=== PATIENT | female | born 1940 | race Caucasian/White ===

== ENCOUNTER → 2018-11-13 10:30 | Outpatient (CLI) | payer MEDICARE, OTHER, BC, SELFPAY ==
--- NOTE | 2018-11-13 | DI.MG.S_ITS ---
BILATERAL DIGITAL SCREENING MAMMOGRAM 3D/2D WITH CAD: 11/13/2018 CLINICAL: Routine screening. Comparison is made to exams dated: 09/05/2017 mammogram, 10/19/2014 mammogram, and 08/29/2012 mammogram - [facility]. There are scattered fibroglandular elements in both breasts. Current study was also evaluated with a Computer Aided Detection (CAD) system. No significant masses, calcifications, or other findings are seen in either breast. There has been no significant interval change. IMPRESSION: NEGATIVE There is no mammographic evidence of malignancy. A 1 year screening mammogram is recommended. This exam was interpreted at Station ID: [id number]. NOTE: For mammograms, a report in lay terms will be sent to the patient. Approximately 15% of breast malignancies will not be visualized mammographically. In the management of a palpable breast mass, a negative mammogram must not discourage biopsy of a clinically suspicious lesion. Electronically Signed By: Harvey Forde M.D. [email or web address]/[email or web address]:11/13/2018 17:12:35 copy to: Keysha Barger M.D., [facility], ph: [phone], fax: [phone] letter sent: Normal Exam ACR BI-RADS Category 1: Negative [id number]
== END ==
PROVIDERS: PCP Family Medicine; Visit Provider Family Medicine
DX: Z12.31 Encounter for screening mammogram for malignant neoplasm of breast (principal)
CPT/HCPCS: 77063; 77067

== ENCOUNTER → 2018-11-14 07:51 | Outpatient (CLI) | payer MEDICARE, OTHER, BC, SELFPAY ==
[2018-11-14 08:59] LABS: Hematocrit 40.2 % (36-46); Hemoglobin 13.8 g/dL (12.0-16.0); Mean Corpuscular HGB Conc 34.3 % (30-36); Mean Corpuscular Hemoglobin 31.3 PG (26-34); Mean Corpuscular Volume 91.2 fL (80-100); Platelet Count 275 X10^3/uL (150-400); White Blood Cell Count 4.5 X10^3/uL (4.5-11.0)
[2018-11-14 09:20] LABS: Neutrophils Absolute Manual 2700 /uL (3000-5900); Rouleaux 1+; Total Cells Counted 100
[2018-11-14 09:28] LABS: Alanine Aminotransferase 27 IU/L (9-52); Albumin 4.5 g/dL (3.5-5.0); Albumin Globulin Ratio 1.6 (1.0-2.8); Alkaline Phosphatase 56 U/L (38-126); Aspartate Aminotransferase 27 IU/L (14-36); BUN Creatinine Ratio 14.3 (6-22); Bilirubin Total 0.7 mg/dL (0.2-1.3); Blood Urea Nitrogen 10 mg/dL (7-17); Calcium 10.1 mg/dL (8.4-10.2); Carbon Dioxide 28 mmol/L (22-32); Chloride 103 mmol/L (98-107); Cholesterol 200 mg/dL (140-199); Estimated Glomerular Filt Rate > 60.0 mL/min (>60); Globulin 2.8 g/dL (1.7-4.1); Glucose 116 mg/dL (80-110); HDL Cholesterol 76 mg/dL (40-60); HEMOLYSIS < 15 (0-50); LDL Cholesterol Calculated 99 mg/dL (<100); Potassium 4.4 mmol/L (3.4-5.1); Sodium 142 mmol/L (137-145); Total Protein 7.3 g/dL (6.3-8.2); Triglycerides 127 mg/dL (35-150)
[2018-11-14 09:56] LABS: Thyroid Stimulating Hormone 2.09 uIU/mL (0.47-4.68)
== END ==
PROVIDERS: PCP Family Medicine; Visit Provider Family Medicine
DX: I10 Essential (primary) hypertension (principal)
CPT/HCPCS: 36415; 80053; 80061; 84443; 85025

== ENCOUNTER → 2019-06-18 09:56 | Outpatient (CLI) | payer MEDICARE, OTHER, BC, SELFPAY ==
--- NOTE | 2019-06-18 09:59 | DI.RAD.S_ITS ---
PROCEDURE: XR KNEE LT 3V INDICATIONS: left knee contusion TECHNIQUE: 3 views of the knee were acquired. COMPARISON: None. FINDINGS: Bones: No fractures or dislocations. No suspicious bony lesions. Prominent spurring at the superior pole of the patella. Mild degenerative joint disease Soft tissues: No joint effusion. No suspicious soft tissue calcifications. IMPRESSION: Mild degenerative joint disease. If the patient's pain or other symptoms persist, consider further evaluation with MRI Dictated by: Best Rose M.D. on 06/18/2019 at 13:44 Approved by: Best Rose M.D. on 06/18/2019 at 13:45
--- NOTE | 2019-06-18 09:59 | DI.RAD.S_ITS ---
PROCEDURE: XR CHEST 2V INDICATIONS: chest pain TECHNIQUE: 2 views of the chest were acquired. COMPARISON: None. FINDINGS: Surgical changes and devices: None. Lungs and pleura: Lungs are clear. No pleural effusions or pneumothorax. Mediastinum: Mediastinal contours are normal. Heart size is normal. Bones and chest wall: No suspicious bony abnormalities. Soft tissues appear unremarkable. IMPRESSION: No acute disease Dictated by: Best Rose M.D. on 06/18/2019 at 13:44 Approved by: Best Rose M.D. on 06/18/2019 at 13:44
[2019-06-18 11:28] LABS: Hemoglobin A1C% w Est Avg Glu 5.7 % (4.0-6.0)
[2019-06-18 12:33] LABS: TSH w/ Reflex to FT4 1.46 uIU/mL (0.47-4.68)
[2019-06-18 12:40] LABS: Folate > 20.0 ng/mL (2.76-20.0); Vitamin B12 Reflex MMA if <400 475 pg/mL (239-931)
== END ==
PROVIDERS: PCP Family Medicine; Visit Provider Family Medicine
DX: S80.02XA Contusion of left knee, initial encounter (principal); M17.12 Unilateral primary osteoarthritis, left knee; R07.9 Chest pain, unspecified; R25.1 Tremor, unspecified; R20.0 Anesthesia of skin; R73.01 Impaired fasting glucose
CPT/HCPCS: 36415; 71046; 73562; 82607; 82746; 83036; 84443

== ENCOUNTER 2019-12-15 18:25 | Inpatient (IN) | payer MEDICARE, OTHER, BC, SELFPAY ==
[2019-12-15] VITALS (11 sets, daily range): BP systolic 157–187; BP diastolic 69–95; PULSE 59–68; RESP 14–18; TEMP 36.4–36.5; O2SAT 94–98; BMI 31.8
--- NOTE | 2019-12-15 18:37 | DI.RAD.S_ITS ---
PROCEDURE: XR ANKLE RT 2V INDICATIONS: fall TECHNIQUE: 2 views of the ankle were acquired. COMPARISON: None. FINDINGS: Bones: Laterally displaced and medially angulated fracture of the distal fibula to level of the syndesmosis with comminution. There is a minimally comminuted fracture dislocation involving the distal tibia with avulsion and displacement of the medial malleolus, with a lateral and posterior dislocation at the tibiotalar articulation..No suspicious bony lesions. Moderate plantar and dorsal calcaneal spurring. Mild degenerative midfoot changes. Soft tissues: No tibiotalar joint effusion. Achilles tendon appears normal. IMPRESSION: 1. Posterior lateral fracture dislocation at the tibiotalar joint. 2. Laterally displaced comminuted distal fibular fracture at the syndesmosis. 3. Anterior posterior malleolar fractures are not identified on the given 2 views. Dictated by: Ying Nicholas M.D. on 12/15/2019 at 20:25 Approved by: Ying Nicholas M.D. on 12/15/2019 at 20:29
[2019-12-15] MEDS: MORPHINE 4 MG/ML INJ IV ×2 (18:51→22:04)
[2019-12-15] MEDS: ONDANSETRON 4 MG/2 ML INJ IV (18:51)
--- NOTE | 2019-12-15 20:27 | ED.LOWEXIN ---
HPI - Extremity Injury (Lower) General Chief Complaint: Extremity Injury, Lower Stated Complaint: RIGHT ANKLE INJURY Time Seen by Provider: 12/15/19 18:33 Source: patient and EMS Mode of arrival: EMS Limitations: no limitations History of Present Illness HPI Narrative: The patient stepped out her mailbox, about 6:00 p.m.. She slipped on her driveway on snow/ice. Her right ankle rolled under her, she is significantly injured her right ankle. The right ankle is deformed, she has no head, neck, torso or upper extremity injuries. Her left leg is not injured. She is on medications for hypertension. She is not on blood thinners. She has deformity to the right ankle. She has no numbness or tingling to the right foot. Her last meal was before 6:00 p.m.. She has no history of sleep apnea, airway disease, or cardiac disease. Her tetanus is up-to-date. Related Data Home Medications Medication Instructions Recorded Confirmed ASPIRIN (#ASPIR 81) 81 mg PO Q DAY #0 06/11/12 12/16/19 melatonin 5 mg capsule 15 mg PO BEDTIME cap 04/30/19 12/16/19 omeprazole magnesium 20 mg 20 mg PO DAILY 04/30/19 12/16/19 tablet,delayed release Previous Rx's Medication Instructions Recorded furosemide 20 mg tablet 20 mg PO DAILY #30 tab 12/10/18 lisinopril 20 mg tablet 20 mg PO DAILY #30 tab 09/09/19 propranolol 80 mg capsule,extended 80 mg PO DAILY #30 cap 09/09/19 release 24 hr Allergies Allergy/AdvReac Type Severity Reaction Status Date / Time No Known Drug Allergies Allergy Verified 11/06/19 08:30 Review of Systems Review of Systems ROS Unobtainable: All systems reviewed & are unremarkable except as noted in HPI and below Constitutional Comments: No recent illness or other injuries. Eyes Comments: No visual changes. ENT Comments: No head or neck complaints. Cardiovascular Cardiovascular: Denies chest pain, Denies edema, Denies irregular heart rhythm, Denies dyspnea and Denies dyspnea on exertion Respiratory Respiratory: Denies cough, Denies dyspnea, Denies dyspnea on exertion and Denies wheezing Gastrointestinal Gastrointestinal: Denies abdominal pain and Denies nausea Musculoskeletal Musculoskeletal: Denies back pain Allergic/Immunologic Allergic/Immunologic: Denies wheezing Patient History Medical History Hypertension (Acute) Obesity (Acute) Surgical History Status post appendectomy Family History Brother Heart disease Father Heart disease Social History marital status: number of children: 2 household members: spouse lives independently: Yes caregiver/support person: No housing: house Smoking Status: Never smoker second hand exposure: No alcohol intake: current substance use type: does not use Smoking Status: Never smoker Substance Use Type: does not use Exam Initial Vital Signs Initial Vital Signs: Vital Signs Temperature 97.7 F 12/15/19 18:31 Pulse Rate 66 12/15/19 18:31 Respiratory Rate 16 12/15/19 18:31 Blood Pressure 157/72 H 12/15/19 18:31 Pulse Oximetry 96 12/15/19 18:31 Const General: cooperative and well developed Nutritional Appearance: well nourished [facility] Head: normocephalic and atraumatic Eyes General: appearance normal, both eyes and all related structures Eyelids: eyelids normal Conjunctivae: conjunctivae normal Sclera: sclerae normal Pupils: PERRL EOM: EOM intact bilaterally Neck Neck: trachea midline, supple, No lymphadenopathy and No JVD Resp Effort & Inspection: normal respiratory effort and able to speak in complete sentences Auscultation: clear to auscultation bilaterally, no rales, no rhonchi and no wheezes Cardio Rate: regular rate Rhythm: regular rhythm Heart Sounds: no click, no gallops, no murmurs and no rubs Pulses: normal peripheral pulses GI Inspection: non-distended Palpation: soft, no hepatosplenomegaly, No guarding, No pulsatile mass and No tender Auscultation: normal bowel sounds Back/Spine/Pelvis Thoracic/Lumbar Spine: thoracic and lumbar spine normal to inspection Skin General: no rashes or lesions noted Other: Abrasion, right medial ankle, at the fracture site. Neuro General: alert, oriented x3 and gait normal Speech: speech normal Motor: muscle tone normal throughout Sensory Exam: no sensory deficits noted Extrem Other: Right ankle for deformity consistent with fracture/dislocation with lateral displacement. Abrasion of the medial fracture line with serous drainage, consistent with puncture wound. The right foot is neurovascular intact. Pulses are normal. Light touch sensation is normal. Procedures Orthopedic Fracture Reduction Fracture #1: Time Out Performed: Yes Side: right Fracture Reduction Location: tibia Analgesia: procedural sedation Technique: direct manipulation Post Reduction X-rays Demonstrate: anatomical reduction Post-reduction neuro exam: intact Post-reduction vascular exam: intact Splint Applied: Yes Patient Tolerated Procedure: Well Orthopedic Splinting/Casting Injury #1: Side: right Lower Extremity Injury Location: ankle Lower Extremity Immobilizer: posterior splint and stirrup splint Post splinting neuro exam: intact Post splinting vascular exam: intact Placed by: Provider Procedural Sedation Patient Age: Patient is 5yrs or older Time out performed: Yes Indication: fracture/dislocation reduction ASA Class: II Mallampati Airway Classification: Class I Time of Last PO Intake: 05:00 Preparation: carpet measurer applied, pulse oximeter, capnometry used, supplemental O2 applied, suction/airway equipment at bedside and IV secured IV Etomidate dose (mg): 8 ED Sedation Level: Moderate (Concious) Patient Tolerated Procedure: Well Course Course Course Narrative: The patient has an open, dislocated right ankle fracture. The fracture was reduced, splinted. The foot is neurovascularly intact. The case was discussed with Ortho, Dr. Izquierdo. The patient will be admitted, he will see her in the morning. The case was then discussed, Dr. Lizarraga. Dr. lizarraga has agreed to accept the patient for admission. Orders Ordered: ED Orders 12/15/19 22:18 XR ankle RT 2V Stat 12/15/19 23:11 EKG-12 Lead Stat 12/15/19 23:35 Complete Blood Count AUTO DIFF Stat Comprehensive Metabolic Panel Stat Prothrombin Time INR Stat Sodium Chloride (Normal Saline 0.9%) 1,000 mls @ 125 mls/hr IV CONT ANTHONY Last Admin: 12/16/19 00:15 Dose: 125 mls/hr Documented by: WALLY Cefazolin Sodium 2 gm/ Sodium (Chloride) 100 mls @ 200 mls/hr IV Q8H ANTHONY Stop: 12/16/19 07:31 Last Admin: 12/16/19 00:29 Dose: Not Given Documented by: WALLY Morphine Sulfate (Morphine) 2 mg IV Q4HR PRN PRN Reason: Pain, Moderate (4-6) Discontinued Medications Bacitracin (Bacitracin) 1 applic TOP NOW ONE Stop: 12/15/19 22:04 Last Admin: 12/15/19 22:13 Dose: 1 applic Documented by: OSVALDO Cefazolin Sodium (Ancef Vial) 2 gm IV NOW ONE Stop: 12/15/19 22:48 Last Admin: 12/15/19 23:12 Dose: Not Given Documented by: OSVALDO Etomidate (Amidate) 12 mg IV NOW ONE Stop: 12/15/19 20:31 Last Admin: 12/15/19 22:12 Dose: 8 mg Documented by: OSVALDO Sodium Chloride (Normal Saline 0.9%) 1,000 mls @ 1,000 mls/hr IV BOLUS ONE Stop: 12/15/19 21:28 Last Admin: 12/15/19 22:04 Dose: 1,000 mls/hr Documented by: OSVALDO Cefazolin Sodium/Dextrose (Ancef) 2 gm in 100 mls @ 200 mls/hr IV NOW ONE Stop: 12/15/19 23:40 Last Infusion: 12/15/19 23:55 Dose: 0 mls/hr Documented by: Admin: 12/15/19 23:20 Dose: 200 mls/hr Documented by: OSVALDO Lisinopril (Zestril) 20 mg PO NOW ONE Stop: 12/16/19 01:05 Last Admin: 12/16/19 01:36 Dose: 20 mg Documented by: WALLY Metoprolol Tartrate (Lopressor) 25 mg PO NOW ONE Stop: 12/16/19 01:23 Last Admin: 12/16/19 01:35 Dose: 25 mg Documented by: WALLY Morphine Sulfate (Morphine) 4 mg IV NOW ONE Stop: 12/15/19 18:43 Last Admin: 12/15/19 18:51 Dose: 4 mg Documented by: DANA Morphine Sulfate (Morphine) 4 mg IV NOW ONE Stop: 12/15/19 21:57 Last Admin: 12/15/19 22:04 Dose: 4 mg Documented by: OSVALDO Ondansetron HCl (Zofran) 4 mg IV NOW ONE Stop: 12/15/19 18:43 Last Admin: 12/15/19 18:51 Dose: 4 mg Documented by: DANA Propranolol HCl (Inderal La) 80 mg PO NOW ONE Stop: 12/16/19 01:05 Last Admin: 12/16/19 01:37 Dose: Not Given Documented by: WALLY Vital Signs Vital signs: Vital Signs - 8 hr 12/15/19 22:10 12/15/19 22:15 12/15/19 22:20 Pulse Rate 67 68 60 Respiratory Rate 16 14 17 Blood Pressure [Left Arm] 178/95 H 170/71 H 174/69 H Pulse Oximetry 98 94 97 12/15/19 22:25 12/15/19 22:30 12/15/19 22:34 Pulse Rate 60 61 62 Respiratory Rate 17 16 15 Blood Pressure [Left Arm] 176/84 H 174/82 H 182/88 H Pulse Oximetry 95 97 97 12/15/19 22:40 12/15/19 22:46 Pulse Rate 59 L 67 Respiratory Rate 17 16 Blood Pressure [Left Arm] 187/73 H 185/74 H Pulse Oximetry 96 97 MDM - Extremity Injury (Lower) Lab Data Result diagrams: 12/15/19 23:35 12/15/19 23:35 Labs: Point of Care Testing Test Results Negative Imaging Data Right ankle: Radiologist's Impression: Laterally dislocated bimalleolar fracture. Right ankle post reduction x-ray.: My Impression: The ankle has been successfully reduced. Discharge Plan Departure Patient Disposition: Admitted As Inpatient Clinical Impression: Open fracture of right ankle Qualifiers: Encounter type: initial encounter Open fracture type: open type I or II Qualified Code(s): S82.891B - Other fracture of right lower leg, initial encounter for open fracture type I or II Dislocation of ankle, right, open Qualifiers: Encounter type: initial encounter Qualified Code(s): S93.04XA - Dislocation of right ankle joint, initial encounter Discharge Date/Time: 12/15/19 23:40 Admit Date/Time: 12/15/19 23:15 Admit Provider: Crispin Lizarraga
[2019-12-15] MEDS: SODIUM CHLORIDE 0.9% 1,000 ML 1000 ML IV (22:04)
[2019-12-15] MEDS: ETOMIDATE 2 MG/ML 10 ML VIAL 12 MG IV (22:12)
[2019-12-15] MEDS: BACITRACIN OINT 0.9 GM PCKT 1 APPLIC TOP (22:13)
--- NOTE | 2019-12-15 22:18 | DI.RAD.S_ITS ---
PROCEDURE: XR ANKLE RT 2V INDICATIONS: post reduction TECHNIQUE: 2 views of the ankle were acquired. COMPARISON: [facility], , XR ANKLE RT 2V, 12/15/2019, 19:04. FINDINGS: Bones: There is improved alignment status post closed reduction of the previously identified trimalleolar fracture-dislocation of the right ankle. Fractures of the medial malleolus, distal fibula, and posterior malleolus are redemonstrated. There is persistent widening of the ankle mortise medially as well as mild widening of the distal tibiofibular syndesmosis. Soft tissues: There is any external splint which limits evaluation of fine bony and soft tissue detail. Periarticular soft tissue swelling is demonstrated. IMPRESSION: 1. Improved alignment status post closed reduction of trimalleolar right ankle fracture-dislocation. Dictated by: Harvey Forde M.D. on 12/16/2019 at 9:04 Approved by: Harvey Forde M.D. on 12/16/2019 at 9:24
--- NOTE | 2019-12-15 22:28 | PC.NURSE ---
Reduction completed by Dr. Shipley. Orthoglass splint placed by Dr. Shipley, this EDRN, and Blaise MABRY.
--- NOTE | 2019-12-15 23:11 | PC.NURSE ---
UNable to urinate, states she will try again later.
[2019-12-15] MEDS: CEFAZOLIN 2 GM/100 ML FROZ.PIGGY IV (23:20)
[2019-12-15 23:52] LABS: Add Manual Diff / Slide Review NO; Basophils Absolute Auto 0 /uL (0-100); Basophils Percent Auto 0.3 % (0-2); Eosinophils Absolute Auto 300 /uL (0-450); Eosinophils Percent Auto 2.6 % (2-4); Hematocrit 36.6 % (36-46); Hemoglobin 12.4 g/dL (12.0-16.0); Lymphocytes Absolute Auto 1800 /uL (1100-4500); Lymphocytes Percent Auto 18.5 % (25-40); Mean Corpuscular HGB Conc 33.9 % (30-36); Mean Corpuscular Hemoglobin 31.2 PG (26-34); Monocytes Absolute Auto 600 /uL (0-900); Monocytes Percent Auto 6.3 % (3-14); Neutrophils Absolute Auto 7000 /uL (1500-7000); Neutrophils Percent Auto 72.3 % (50-75); Platelet Count 241 X10^3/uL (150-400); Red Blood Cell Count 3.98 X10^6/uL (4.0-5.2); Red Cell Distribution Width 13.5 % (11.6-14.8); White Blood Cell Count 9.7 X10^3/uL (4.5-11.0)
[2019-12-15 23:59] LABS: Prothrombin Time 11.9 SECONDS (10.1-12.7)
[2019-12-16] VITALS (18 sets, daily range): BP systolic 125–161; BP diastolic 56–86; PULSE 63–71; RESP 10–20; TEMP 35.8–37.2; O2SAT 92–98; BMI 33.0
[2019-12-16 00:03] LABS: Alanine Aminotransferase 13 IU/L (<35); Albumin 3.8 g/dL (3.5-5.0); Albumin Globulin Ratio 1.4 (1.0-2.8); Alkaline Phosphatase 59 U/L (38-126); Aspartate Aminotransferase 19 IU/L (14-36); BUN Creatinine Ratio 17.5 (6-22); Bilirubin Total 0.4 mg/dL (0.2-1.3); Blood Urea Nitrogen 14 mg/dL (7-17); Calcium 8.8 mg/dL (8.4-10.2); Carbon Dioxide 26 mmol/L (22-32); Chloride 104 mmol/L (98-107); Estimated Glomerular Filt Rate > 60.0 mL/min (>60); Globulin 2.7 g/dL (1.7-4.1); Glucose 129 mg/dL (80-110); HEMOLYSIS < 15 (0-50); Potassium 3.8 mmol/L (3.4-5.1); Sodium 138 mmol/L (137-145); Total Protein 6.5 g/dL (6.3-8.2)
[2019-12-16] MEDS: SODIUM CHLORIDE 0.9% 1,000 ML 125 ML IV ×2 (00:15→08:18)
[2019-12-16] MEDS: METOPROLOL IR 25 MG TABLET PO (01:35)
[2019-12-16] MEDS: LISINOPRIL 20 MG TABLET PO (01:36)
[2019-12-16] MEDS: MORPHINE 2 MG/ML INJ IV ×2 (05:12→09:09)
--- NOTE | 2019-12-16 06:30 | PC.NURSE ---
Pt admitted to unit at 2350 as AxOx3. BP on admit 179/87, she had not taken her nightly BP meds. Lisinopril given and Metoprolol. About an hour after arriving she also vomitted 100cc; probably from the morphine she received in ER. Pain rated about 5 out of 10 when first admitted. Increased to 8 out of 10 this morning, relieved with 2mg morphine. Right leg in splint. Good pulses, CMS+. Kept NPO overnight. NS@125mL/hr, no more nausea. EKG NSR taken this morning.
--- NOTE | 2019-12-16 08:04 | P.HP_ITS ---
History of Present Illness History of Present Illness Date Patient Seen: 12/16/19 Time Patient Seen: 08:30 Chief complaint: RIGHT ANKLE INJURY Narrative: Pt is a 79 year old woman with hypertension and GERD who presented after falling on the ice when going to get her mail yesterday evening. She reports that her leg went one way and her foot the other way. She had instant pain in her leg. She denies hitting her head, or any other injury to her body. She had no loss of consciousness. She denies any chest pain or any other symptoms prior to the fall, and states that she simply slipped on the ice. In the emergency department, the patient was noted to have an open fracture at the ankle. The patient reports that she has otherwise been feeling well. She is a generally healthy woman who takes antihypertensives and a PPI. Patient History Medical History Hypertension (Acute) Obesity (Acute) Surgical History Status post appendectomy Family & Social History Family History Brother Heart disease Father Heart disease Social History: household members spouse lives independently Yes caregiver/support person No Safety & Behavioral: Feels Safe in Current Yes Environment Been Physically Hurt or No Threatened By a Person Suicidal Ideation Description None Suicide Plan Description No Plan Tobacco & Substance use: Smoking Status Never smoker alcohol intake current alcohol intake frequency a few times a month Substance Use Type does not use Meds Home Medications and Allergies Home Medications Medication Instructions Recorded Confirmed Type ASPIRIN (#ASPIR 81) 81 mg PO Q DAY #0 06/11/12 12/16/19 History furosemide 20 mg tablet 20 mg PO DAILY #30 tab 12/10/18 12/16/19 Rx melatonin 5 mg capsule 15 mg PO BEDTIME cap 04/30/19 12/16/19 History omeprazole magnesium 20 mg 20 mg PO DAILY 04/30/19 12/16/19 History tablet,delayed release lisinopril 20 mg tablet 20 mg PO DAILY #30 tab 09/09/19 12/16/19 Rx propranolol 80 mg capsule,extended 80 mg PO DAILY #30 cap 09/09/19 12/16/19 Rx release 24 hr Allergies Allergy/AdvReac Type Severity Reaction Status Date / Time No Known Drug Allergies Allergy Verified 11/06/19 08:30 Review of Systems Constitutional Constitutional: Denies fever(s), Denies frequent falls and Denies lack of energy Cardiovascular Cardiovascular: Denies chest pain, Denies leg swelling, Denies rapid, pounding, or irregular heartbeat and Denies shortness of breath Respiratory Respiratory: Reports cough, Denies dyspnea and Denies wheezing Gastrointestinal Gastrointestinal: Denies abdominal pain, Denies constipation, Reports heartburn, Denies nausea and Denies vomiting Neurologic Neurologic: Denies frequent falls Endocrine Endocrine: Denies palpitations Allergic/Immunologic Allergic/Immunologic: Denies wheezing Exam Vital Signs (past 8 hours): - 12/16/19 05:31 Temperature 97.5 F L Pulse Rate 64 Respiratory Rate 18 Blood Pressure 144/76 H Pulse Oximetry 96 Oxygen Delivery Method Room Air Oxygen Flow Rate 0 Narrative Exam Narrative: GEN - alert, cooperative and no distress HEENT - normocephalic and atraumatic, sclera white, moist mucus membranes NECK - FROM, no adenopathy HEART - RRR, S1, S2 normal, no S3 or S4, no murmurs LUNGS - symmetric chest rise, no accessory muscles, clear to auscultation b ilaterally ABD - nondistended, normal bowel sounds, soft, nontender and no hepatomegaly, splenomegaly or masses EXT - trace edema left LE, right LE wrapped and splinted - cool to touch but pedal pulses intact SKIN - no rashes or suspicious lesions NEURO - no gross deficits Objective Imaging xray: Radiologist's impression: PROCEDURE: XR ANKLE RT 2V INDICATIONS: fall TECHNIQUE: 2 views of the ankle were acquired. COMPARISON: None. FINDINGS: Bones: Laterally displaced and medially angulated fracture of the distal fibula to level of the syndesmosis with comminution. There is a minimally comminuted fracture dislocation involving the distal tibia with avulsion and displacement of the medial malleolus, with a lateral and posterior dislocation at the tibiotalar articulation..No suspicious bony lesions. Moderate plantar and dorsal calcaneal spurring. Mild degenerative midfoot changes. Soft tissues: No tibiotalar joint effusion. Achilles tendon appears normal. IMPRESSION: 1. Posterior lateral fracture dislocation at the tibiotalar joint. 2. Laterally displaced comminuted distal fibular fracture at the syndesmosis. 3. Anterior posterior malleolar fractures are not identified on the given 2 views. Dictated by: Ying Nicholas M.D. on 12/15/2019 at 20:25 Labs Result Diagrams: 12/15/19 23:35 12/15/19 23:35 Labs: Laboratory Results - last 24 hr 12/15/19 12/15/19 12/15/19 23:35 23:35 23:35 WBC 9.7 RBC 3.98 L Hgb 12.4 Hct 36.6 MCV 92.0 MCH 31.2 MCHC 33.9 RDW 13.5 Plt Count 241 Neut % (Auto) 72.3 Lymph % (Auto) 18.5 L [place] % (Auto) 6.3 Eos % (Auto) 2.6 Baso % (Auto) 0.3 Neut # (Auto) 7000 Lymph # (Auto) 1800 [place] # (Auto) 600 Eos # (Auto) 300 Baso # (Auto) 0 PT 11.9 INR 1.0 Sodium 138 Potassium 3.8 Chloride 104 Carbon Dioxide 26 BUN 14 Creatinine 0.80 Estimated GFR > 60.0 BUN/Creatinine Ratio 17.5 Glucose 129 H Calcium 8.8 Total Bilirubin 0.4 AST 19 ALT 13 Alkaline Phosphatase 59 Total Protein 6.5 Albumin 3.8 Globulin 2.7 Albumin/Globulin Ratio 1.4 Assessment & Plan Assessment & Plan narrative: Pt is a 79 year old woman with hypertension and GERD who presented after falling on the ice when going to get her mail yesterday evening, found to have an open dislocated right ankle fracture. 1) Ankle fracture: - Management as per ortho. Plan for the OR later today. 2) Hypertension: - Continue home Lisinopril, Propranolol, Furosemide. 3) GERD: - Continue home Omeprazole FEN: NPO pending surgery DVT: SCDs Code: Full Dispo: Pending surgery and PT/OT evaluation postoperatively. Discharge timing largely to be determined by Ortho, as medical issues stable at this point in time.
[2019-12-16] MEDS: CEFAZOLIN VIAL 2 GM in SODIUM CHLORIDE 0.9% 100 ML 200 ML IV (09:09)
--- NOTE | 2019-12-16 09:34 | PC.NURSE ---
Addendum entered by Christi Carter R.N. 12/16/19 14:48: Patien down to surgery at 1400. Addendum entered by Christi Carter R.N. 12/16/19 11:55: Pt stated that she voided in her brief again and was still having bladder tenderness. Patient was bladder scanned again and had 767cc of urine in her bladder. Called and got an order from RN to put a garcias catheter in. This has been placed and pt initally had 1000 cc in bag... She has now put out a total of 1300. Patient states that she is feeling better and she is now visiting with her . Calling who is microelectronics engineer to get an ortho consult so that she can be seen today for her ankle. Original Note: Assess- Patient is a bit anxious, she states that her pain level is a 7/10, given Morphine 2mg IV and seems to be helping patient. She denies nausea and is lying on her back... She was incontinent of a large amount of urine in her brief and was stating that when she is laying flat her bladder feels full. Bladder scanned for 377cc of urine. Will keep an eye on this, if goes above 400cc will talk to ortho and see if we can place a garcias before she has her ankle surgery. Antibiotic infusing at this time and patient given a warm blanket.
[2019-12-16 13:29] LABS: Bacteria Urine None Seen; WBC Urine None Seen (0-5/HPF)
[2019-12-16 13:30] LABS: Appearance Urine UA CLEAR; Bilirubin Urine UA NEGATIVE (NEGATIVE); Color Urine UA YELLOW; Glucose Urine UA NEGATIVE (Negative); Ketones Urine UA NEGATIVE (NEGATIVE); Leukocyte Esterase Urine UA NEGATIVE (NEGATIVE); Nitrite Urine UA NEGATIVE (Negative); Occult Blood Urine UA 1+ (Negative); Protein Urine UA NEGATIVE (Negative); Specific Gravity Urine UA 1.015 (1.000-1.035); Urobilinogen Urine UA 0.2 E.U./dL (0.2)
[2019-12-16 13:40] LABS: Culture Indicated Urine Cult Not Indicated; RBC Urine 5-10/HPF (0-5/HPF)
--- NOTE | 2019-12-16 14:44 | CM.IDA ---
Addendum entered by AGUILA Montez 12/17/19 09:26: Met w/pt and spouse this AM and introduced role again to both at bedside. Pt admits she is nervous about returning home because she needs to get into her house (and is fearful about the snow/ice accumulation) and is not sure how she'll do being non-weight bearing on her right ankle. Encouraged pt and spouse to think about SNF; pt has MCR and is admitted as an inpatient so can use this benefit after 3 nights. This OPHTHALMIC MEDICAL TECHNOLOGIST will follow closely and chk back w/pt and spouse after therapies have assessed and initial recommendation for dispo is made. IRMA Original Note: Initial DCP Assessment Note: Pt is a 79 yo female, resident of [place]. Pt is awaiting surgery today for a fractured ankle, sustained after a fall on the ice at her mailbox. PCP: Keysha Barger Payer: ADAN/Heladio Novak This OPHTHALMIC MEDICAL TECHNOLOGIST met briefly w/pt this AM, she was awaiting surgery and said to this OPHTHALMIC MEDICAL TECHNOLOGIST it couldn't come soon enough and I don't feel very social at this time. Pt awaiting her to arrive to the hospital but also nervous about him driving in the snow. This OPHTHALMIC MEDICAL TECHNOLOGIST will return to assess needs further, pt will be POD#1 from her ankle surgery. AGUILA Montez
--- NOTE | 2019-12-16 14:56 | PC.NURSE ---
Pt arrived to room at 1455.. She is comfortable and dressing to l.hip is cdi with ice in place. VSS and patient denies pain.
[2019-12-16] MEDS: LACTATED RINGERS 1,000 ML 42 ML IV ×2 (14:58→16:50)
--- NOTE | 2019-12-16 15:08 | PM.CN ---
History of Present Illness Consult details Date Patient Seen: 12/16/19 Time Patient Seen: 15:09 Chief complaint: RIGHT ANKLE INJURY Reason for consult: right ankle open trimal fracture Narrative: Patient is a 79-year-old female who was out getting her mail yesterday evening at about 6:00 p.m.. She had a ground level fall and fractured her right ankle. Was also skin break at the level of the fracture with continuous bleeding. Concern for open fracture. She was seen at [facility] where she was given 2 g Ancef on admission and given Ancef q.8 hours. Patient's pain has been well controlled since admission denies any numbness or tingling in the toes. Meds Home Medications and Allergies Home Medications Medication Instructions Recorded Confirmed Type ASPIRIN (#ASPIR 81) 81 mg PO Q DAY #0 06/11/12 12/16/19 History furosemide 20 mg tablet 20 mg PO DAILY #30 tab 12/10/18 12/16/19 Rx melatonin 5 mg capsule 15 mg PO BEDTIME cap 04/30/19 12/16/19 History omeprazole magnesium 20 mg 20 mg PO DAILY 04/30/19 12/16/19 History tablet,delayed release lisinopril 20 mg tablet 20 mg PO DAILY #30 tab 09/09/19 12/16/19 Rx propranolol 80 mg capsule,extended 80 mg PO DAILY #30 cap 09/09/19 12/16/19 Rx release 24 hr Allergies Allergy/AdvReac Type Severity Reaction Status Date / Time No Known Drug Allergies Allergy Verified 11/06/19 08:30 Exam Vital Signs (past 8 hours): - 12/16/19 08:14 12/16/19 08:35 12/16/19 11:20 Temperature 98.5 F 98.7 F Pulse Rate 70 65 65 Respiratory Rate 20 18 Blood Pressure 156/79 H 144/67 H Pulse Oximetry 98 98 97 12/16/19 14:45 12/16/19 14:46 Temperature 98.5 F 98.5 F Pulse Rate 68 68 Respiratory Rate 18 18 Blood Pressure 156/66 H 156/86 H Pulse Oximetry 95 96 Oxygen Delivery Method Room Air Oxygen Flow Rate 0 Narrative Exam Narrative: Splint in place. Able to wiggle toes. Sensation intact to toes. Objective Labs Result Diagrams: 12/15/19 23:35 12/15/19 23:35 Labs: Laboratory Results - last 24 hr 12/15/19 12/15/19 12/15/19 23:35 23:35 23:35 WBC 9.7 RBC 3.98 L Hgb 12.4 Hct 36.6 MCV 92.0 MCH 31.2 MCHC 33.9 RDW 13.5 Plt Count 241 Neut % (Auto) 72.3 Lymph % (Auto) 18.5 L [place] % (Auto) 6.3 Eos % (Auto) 2.6 Baso % (Auto) 0.3 Neut # (Auto) 7000 Lymph # (Auto) 1800 [place] # (Auto) 600 Eos # (Auto) 300 Baso # (Auto) 0 PT 11.9 INR 1.0 Sodium 138 Potassium 3.8 Chloride 104 Carbon Dioxide 26 BUN 14 Creatinine 0.80 Estimated GFR > 60.0 BUN/Creatinine Ratio 17.5 Glucose 129 H Calcium 8.8 Total Bilirubin 0.4 AST 19 ALT 13 Alkaline Phosphatase 59 Total Protein 6.5 Albumin 3.8 Globulin 2.7 Albumin/Globulin Ratio 1.4 Urine Color Urine Appearance Urine pH Ur Specific [place] Urine Protein Urine Glucose (UA) Urine Ketones Urine Occult Blood Urine Nitrate Urine Bilirubin Urine Urobilinogen Ur Leukocyte Esterase Urine RBC Urine WBC Urine Bacteria Ur Culture Indicated? 12/16/19 12:15 WBC RBC Hgb Hct MCV MCH MCHC RDW Plt Count Neut % (Auto) Lymph % (Auto) [place] % (Auto) Eos % (Auto) Baso % (Auto) Neut # (Auto) Lymph # (Auto) [place] # (Auto) Eos # (Auto) Baso # (Auto) PT INR Sodium Potassium Chloride Carbon Dioxide BUN Creatinine Estimated GFR BUN/Creatinine Ratio Glucose Calcium Total Bilirubin AST ALT Alkaline Phosphatase Total Protein Albumin Globulin Albumin/Globulin Ratio Urine Color Yellow Urine Appearance Clear Urine pH 7.0 Ur Specific [place] 1.015 Urine Protein Negative Urine Glucose (UA) Negative Urine Ketones Negative Urine Occult Blood 1+ H Urine Nitrate Negative Urine Bilirubin Negative Urine Urobilinogen 0.2 Ur Leukocyte Esterase Negative Urine RBC 5-10/hpf H Urine WBC None seen Urine Bacteria None seen Ur Culture Indicated? Cult not indicated Assessment & Plan Assessment & Plan narrative: Patient is a 79-year-old female with a right ankle trimalleolar fracture. Concern for open fracture. She'd been given Ancef 2 g q.8 hours since admission. Final before I and D and open reduction internal fixation the OR today. Risks and benefits of surgery were discussed the patient and she wishes to proceed. Time Spent With Patient Time with patient: 15-24 minutes
[2019-12-16] MEDS: fentaNYL 100 MCG/2 ML INJ 50 MCG IV (15:09)
[2019-12-16] MEDS: CEFAZOLIN 2 GM/100 ML FROZ.PIGGY IV (15:10)
--- NOTE | 2019-12-16 15:42 | SUR.OPER ---
Supine on padded OR bed, head on pillow, arms secured on padded arm boards at <90 degrees abduction, legs uncrossed, safety belt at abdomen, tape over blanket over left lower leg. right leg propped on blankets, hip bump under right hip
--- NOTE | 2019-12-16 17:49 | PM.OP.1 ---
Operative Date/Time/Diagnoses Date of procedure: 12/16/19 Time of procedure: 17:49 Pre-op diagnosis: Open right trimalleolar ankle fracture Post-op diagnosis: other (Closed right trimalleolar ankle fracture ) Procedure & Clinicians Procedure: ORIF right ankle Same procedure as scheduled: Yes Indications: Trimalleolar ankle fracture Surgeon: Garrick Izquierdo Anesthesia Type: General Operative Notes Findings: Closed right trimalleolar ankle fracture. Closure Type: primary Specimen(s): none sent Prosthetic devices, grafts, tissues, transplants, or devices: Arthrex 6 hole lateral malleolus plate 50 mm 3.5 mm cortical screw - syndesmotic 50mm long threaded 4.0 mm cannulated screw Estimated Blood Loss (mL): 50 Blood products transfused: none Procedure in detail: Patient was met in the preoperative holding area where the site and side of surgery marked by MD. All last minute questions were answered. Patient was then brought back in the operating room where she was transferred onto the OR table. Patient was induced under general anesthesia. The right lower extremity splint was then removed. The right lower extremity was then prepped and draped in normal sterile fashion. A time-out was performed verifying side and site of surgery as well as the name of the patient. The wound over the medial aspect of the ankle was interrogated and found to be superficial. Preop diagnosis was an open right trimalleolar ankle fracture intraoperative diagnosis is a closed trimalleolar ankle fracture. A 7 cm midline incision over the lateral malleolus was made using 10. Blade followed by dissection scissors and electrocautery down to the level of the fibula. The fracture was identified and the fracture edges were cleaned with a 15 blade. The fracture was then opened and irrigation and curettage was used to clean out the fracture site from clot. The fracture then reduced using a [id number] clamp. A 6 hole lateral malleolus plate was then selected. This was then placed onto the fibula and clamped into place along with the [id number] clamp. Distal locking screws were placed 1st followed by a 3 5 cortical screw in the 3rd to most proximal hole. The proximal cortical screw was then placed followed by a locking screw closest to the fracture site to poor bone quality. The skin edges were then approximated loosely with nylon suture. Our attention was then turned to the medial side. A 5 cm long incision over the medial malleolus was then made the fracture was then cleaned with a curette and a 15 blade and saline. The medial malleolus was then reduced with a [id number] clamp. A nonthreaded wire was then placed up to the medial malleolus into the tibia and x-ray was used to verify that we were not within the joint. A parallel wire was then placed. These were then drilled for 4 0 cancellous screws. A 50 mm screw and a 45 mm screw was then selected respectively. These were then placed. X-rays were then taken and stress views performed I think that the syndesmosis was unstable and this point elected to place a syndesmotic screw. This was placed through the lateral malleolus plate just proximal to the joint line a 3 5 mm cortical screw was placed. Lateral view was obtained and the talus was anteriorly subluxated I initially thought that the six-month most screw might have been over reduced. This was then slightly loosened. This is not completely cure the anterior subluxation. I then explored the posterior tibial tendon and posterior tibial tendon was incarcerated within the fracture of the medial malleolus. This was then freed from the fracture site and this corrected our anterior subluxation of the talus. During this maneuver the anterior medial malleolus screw lost its purchase and the medial malleolus at this area was fragmented I removed the screw and elected to just have [address] for the medial malleolus. Both wounds were thoroughly irrigated 2 O Vicryl used to close subcutaneous layer followed by 3 0 nylons in horizontal mattress fashion a short-leg splint was then placed patient was then brought to the PACU in stable condition. Complications: none Post-operative Condition: stable Disposition: PACU Plan for aftercare: Nonweightbearing right lower extremity. Follow up in 2 weeks.
--- NOTE | 2019-12-16 18:51 | SUR.PHASEI ---
Patient awakens to voice. States, I'm cold. Patient is normothermic. 5 warming blankets placed on patient. Cap refill < 2 seconds. States normal sensations to Right foot. Can palpate right leg popliteal.
--- NOTE | 2019-12-16 19:34 | PC.NURSE ---
Per Dr. Azevedo, pt is to be evaluated by Physical Therapy and Discharge planning prior to discharge. This greeting card writer called Dr. Izquierdo to notify of Dr. Azevedo's orders, Dr. Izquierdo agreeable to pt discharging tomorrow after evaluations are complete.
[2019-12-16] MEDS: SODIUM CHLORIDE 0.9% 1,000 ML 100 ML IV (20:17)
[2019-12-16] MEDS: HYDROCODONE/ACET 5/325 TABLET 2 TAB PO (20:17)
[2019-12-16] MEDS: ONDANSETRON 4 MG/2 ML INJ IV (20:20)
[2019-12-17] VITALS (10 sets, daily range): BP systolic 132–145; BP diastolic 47–75; PULSE 66–88; RESP 15–17; TEMP 36.6–37.4; O2SAT 93–96
[2019-12-17] MEDS: MELATONIN 3 MG TABLET 15 MG PO ×2 (00:08→20:17)
[2019-12-17] MEDS: PANTOPRAZOLE 20 MG TABLET PO (05:22)
[2019-12-17] MEDS: HYDROCODONE/ACET 5/325 TABLET 2 TAB PO ×3 (05:24→14:51)
--- NOTE | 2019-12-17 05:48 | PC.NURSE ---
PT doing well. Pain was tolerable overnight not requesting pain meds. This morning pain went up to a 6-7 out of 10; 2 tabs [place] given. IVF running throughout night. Not drinking quite enough PO fluids yet. Hernandez patent with clear yellow urine. Not OOB overnight. Right ankle in splint. Foot is +3 edema. CMS+. Reports no numbness. Foot is warm, pulses felt. Pt concerned about how she will make it into her house on crutches with her husbands help with this snow. Will pass along to day shift.
[2019-12-17] MEDS: SODIUM CHLORIDE 0.9% 1,000 ML 100 ML IV (06:16)
[2019-12-17] MEDS: PROPRANOLOL ER 80 MG CAP.SA.24H PO (09:27)
[2019-12-17] MEDS: FUROSEMIDE 20 MG TABLET PO (09:27)
[2019-12-17] MEDS: LISINOPRIL 20 MG TABLET PO (09:27)
--- NOTE | 2019-12-17 09:52 | PM.PN.1 ---
Subjective Subjective Date Patient Seen: 12/17/19 Time Patient Seen: 09:52 Interval history: Patient is POD#1 s/p ORIF of right ankle trimalleolar fracture with Dr. Izquierdo. Pain mild to moderate controlled with pain medications. Has not mobilized as of yet. Hernandez catheter in place. Exam Vital Signs (past 8 hours): - 12/17/19 04:46 12/17/19 07:50 12/17/19 08:50 Temperature 98.7 F 98.5 F Pulse Rate 75 88 71 Respiratory Rate 16 16 Blood Pressure 133/75 136/61 Pulse Oximetry 96 94 95 12/17/19 09:27 Temperature Pulse Rate 71 Respiratory Rate Blood Pressure 145/64 H Pulse Oximetry Oxygen Delivery Method Room Air Oxygen Flow Rate 0 Narrative Exam Narrative: 79 year old female resting in bed. Alert and oriented in no acute distress. Cast in place over right ankle is intact and dry. Patient able to flex and extend the toes. Sensation intact. Brisk capillary refill. Objective Labs Result Diagrams: 12/15/19 23:35 12/15/19 23:35 Labs: Laboratory Results - last 24 hr 12/16/19 12:15 Urine Color Yellow Urine Appearance Clear Urine pH 7.0 Ur Specific [place] 1.015 Urine Protein Negative Urine Glucose (UA) Negative Urine Ketones Negative Urine Occult Blood 1+ H Urine Nitrate Negative Urine Bilirubin Negative Urine Urobilinogen 0.2 Ur Leukocyte Esterase Negative Urine RBC 5-10/hpf H Urine WBC None seen Urine Bacteria None seen Ur Culture Indicated? Cult not indicated Assessment & Plan Assessment & Plan narrative: Patient doing well postoperatively. She is to be NWB on the right lower extremity for 6 weeks. Recommend ASA 81mg BID x 6 weeks for DVT prophylaxis. Will likely need SNF vs due to mobility status and is only available powerhouse attendant with his own medical needs. Will need outpatient orthopedic follow up with Dr. Izuqierdo in 2 weeks.
--- NOTE | 2019-12-17 09:55 | PC.NURSE ---
Assess- Patient is awake and states that her pain is getting worse in her r. ankle. She has a heavy cast on that lower extremity, her foot has 3-4+ pitting edema to her foot. Pulses are present and palpable. Cast is not tight as this RN can fit her fingers underneath and extremity is warm. Her is in her room visiting, and she was just given two vicodin and this has been helpful for her comfort.
--- NOTE | 2019-12-17 10:12 | PT.IIE ---
Surgery Performed Operation Date: 12/16/19 15:00 Actual Procedures p ORIF Ankle Fracture - Garrick Izquierdo MD Surgical History (Last Reviewed 12/15/19 @ 23:05 by Branden Shipley MD) Status post appendectomy Medical History (Last Reviewed 12/16/19 @ 15:10 by Garrick Izquierdo MD) Hypertension (Acute) Obesity (Acute) Physical Therapy Inpatient Evaluation/Re-Eval M1 PT/OT-IP Prior Functional Status Start: 12/17/19 11:50 Freq: NEEDED Status: Active Protocol: Document 12/17/19 10:12 AB (Rec: 12/17/19 12:02 AB [id number]) Medical Review Prior Functional Status Medical History Reviewed Yes Communication able to make needs known Mobility and Gait pt stated that she is independent with all mobilities and ambulation without AD Social History Household Members spouse Living Arrangements House Number of Floors (Floors) One Floor Number of Stairs To Enter/Railing? 8 inch high step to enter Home Environment High Toilet,Walk in Shower,Tub /Shower Home Equipment Four Wheel Walker,Hand Held Shower,Grab Bars In Shower Additional Social History Comment pt stated that she has a tub shower but no shower chair and the walk in shower is small ~ 32x32. Has a high bed M2 PT-IP Current Condition Start: 12/17/19 11:50 Freq: NEEDED Status: Active Protocol: Document 12/17/19 10:12 AB (Rec: 12/17/19 12:02 AB [id number]) Physical Therapy Current Condition Current Condition Evaluation Date 12/17/19 Treatment Diagnosis R ankle fx s/p ORIF; difficulty in walking Onset Date 12/15/2019 Precautions Brace R ankle on a soft cast Weight Bearing Status Weight Bearing Status Non-Weight Bearing Allowed Weight Bearing Amount (enter % NWB RLE or #) (%) M3 PT-IP Subjective Start: 12/17/19 11:50 Freq: NEEDED Status: Active Protocol: Document 12/17/19 10:12 AB (Rec: 12/17/19 12:02 AB [id number]) Subjective Physical Therapy Visit Type Type Initial Evaluation Visit Start Time 10:12 Visit Stop Time 11:05 Total Visit Minutes 53 Number of HOMEOWNER ASSOCIATION MANAGER Visits 0 Physical Therapy Visit Comments Patient Comments pt agreeable to do PT Therapy Pain Assessment Pain When Pain Assessed At Rest Pain Present Pain Present Pain Reported Location right ankle Intensity 5 Scale Used Numeric (1 - 10) Pain Management Techniques Modification of Treatment,Re- positioning,Timing of Activity with Medications M4 PT-IP Mobility and Gait Start: 12/17/19 11:50 Freq: NEEDED Status: Active Protocol: Document 12/17/19 10:12 AB (Rec: 12/17/19 12:02 AB [id number]) PT-Bed Mobility Assessment Supine to Sit Supine to Sit Standby Assistance Scooting Scooting to Edge of Bed Standby Assistance PT-Transfer Assessment Sit to and From Stand Sit to and from Stand Maximum Assistance,1 Person Assistance,Use of Upper Extremities Equipment Transfer Assistive Device Gait Belt,Front Wheeled Walker Orthotic/Prosthetic Devices or Brace: Yes Transfers Transfer Destination Chair Transfer Technique Stand Pivot Transfer Ability Level of Assist Maximum Assistance,1 Person Assistance,Use of Upper Extremities Comments Mobility Comments pt completed supine to sit SBA . completed sit to stand max A and max cues to maintain NWB on RLE> pt was able to maintain standing using FWW for support mod A and cues and completed stand pivot transfer using fWW max A and cues. pt unable to hop. educated pt on how to hop and ambulate using FWW completed sit to stand from chair max A and cues and ambulated NWB RLE ~ 3 ft max A and cues and chair follow. pt agreed to sit up on the chair. positioned pt and call light/table placed within reach. informed pt and spouse regarding recommendation of SNF and agreed. also informed pt that PT recommending use of FWW at this time and not crutches due to FWW provided more support compared to crutches and pt is already requiring max A using FWW. Pt agreed. Gait Assessment Gait Gait Assistance Required: Maximum Assistance Distance (Feet) 3 Able to Maintain Weight Bearing Status Yes During Gait Assistive Devices Assistive Device Gait Belt,Front Wheeled Walker Orthotic/Prosthetic Devices or Brace: No Factors Limiting Gait Function Factors Limiting Gait Function Decreased Activity Tolerance, Decreased Strength,Limited Range of Motion,Pain,Poor Balance,Poor Safety Awareness Comments Gait Comments pls refer to mobility section for details PT-Balance Assessment Sitting Balance and Reactions Static Sitting Balance Ability Good Dynamic Sitting Balance Ability Good Standing Balance and Reactions Static Standing Balance Ability Fair Dynamic Standing Balance Ability Poor Device Used FWW M5 PT-IP Objective Assessments Start: 12/17/19 11:50 Freq: NEEDED Status: Active Protocol: Document 12/17/19 10:12 AB (Rec: 12/17/19 12:02 AB [id number]) Orientation Orientation/Cognition Level of Alertness Alert Orientation Name,Age,Place,Situation Language Function Ability No Deficits Noted Safety Awareness Understands Safety Issues Memory Description No Deficits Noted Gross Range of Motion Lower Extremity ROM Assessment Right Impaired Impairments R ankle on soft cast Strength Comments Strength Comments RLE on soft cast and is NWB and MMT not performed on lower leg Coordination Assessment Gross Coordination Gross Coordination WNL Sensation Assessment Sensation Gross Sensation WNL Muscle Tone Muscle Tone WNL Yes M6 PT-IP Treatment Start: 12/17/19 11:50 Freq: NEEDED Status: Active Protocol: Document 12/17/19 10:12 AB (Rec: 12/17/19 12:02 AB [id number]) Physical Therapy Treatment Education Education Provided Precautions,Weight Bearing Status,Safety Other Treatments Other Treatment Performed educated pt andn spouse on equipement needs: w/c, FWW and bedside commode M7 PT-IP Assessment and Plan Start: 12/17/19 11:50 Freq: NEEDED Status: Active Protocol: Document 12/17/19 10:12 AB (Rec: 12/17/19 12:02 AB [id number]) PT Summary Assessment and Plan Potential Rehabilitation Potential Good Status of Condition at Evaluation Evolving Summary Impairments Pain,ROM,Strength,Balance, Coordination,Bed Mobility, Transfers,Gait,Activity Tolerance Assessment Summary pt requiring max A with transfers and has decrease activity tolerance. educated pt and spouse on equipement needs and SNF recommendation at this time. both expressed understanding and agreed. will continue to monitor progress. Goals Bed Mobility Goal Independent Transfer Goal Standby Assistance,Front Wheeled Walker Gait Goal Standby Assistance,Front Wheel Walker Gait Distance 25 Other Goals up/down 1 step FWW min A Days to Meet Goals 10 Frequency of Treatment Frequency Of Treatment Twice a Day Treatment Plan Physical Therapy Treatment Plan Bed Mobility Training,Transfer Training,Gait Training, Therapeutic Exercise,Balance Retraining,Post Op Education, Discharge Planning,Hot or Cold Pack,Neuromuscular Re-ed, Coordination Retraining,Manual Therapy Other Recommendations and Next Treatment transfers, ambulation Focus Recommendations To Nursing Amount of Assist Needed 2 Person Assist Discharge Recommendations PT Discharge Recommendations SNF Rehab Equipment Needed for Home Before FWW; w/c; bedside commode if Discharge going home
--- NOTE | 2019-12-17 11:01 | PM.PN.1 ---
Subjective Subjective Date Patient Seen: 12/17/19 Time Patient Seen: 09:01 Interval history: Ankle injury. Patient having minimal pain. Had surgery last evening as per Orthopedics. Patient has some concerns about the Hernandez catheter. Also has some concerns about safety. Unclear about bowel movements. Exam Vital Signs (past 8 hours): - 12/17/19 04:46 12/17/19 07:50 12/17/19 08:50 Temperature 98.7 F 98.5 F Pulse Rate 75 88 71 Respiratory Rate 16 16 Blood Pressure 133/75 136/61 Pulse Oximetry 96 94 95 12/17/19 09:27 Temperature Pulse Rate 71 Respiratory Rate Blood Pressure 145/64 H Pulse Oximetry Oxygen Delivery Method Room Air Oxygen Flow Rate 0 Narrative Exam Narrative: Patient is resting quietly in hospital bed No formal exam is done otherwise Objective Labs Result Diagrams: 12/15/19 23:35 12/15/19 23:35 Labs: Laboratory Results - last 24 hr 12/16/19 12:15 Urine Color Yellow Urine Appearance Clear Urine pH 7.0 Ur Specific [place] 1.015 Urine Protein Negative Urine Glucose (UA) Negative Urine Ketones Negative Urine Occult Blood 1+ H Urine Nitrate Negative Urine Bilirubin Negative Urine Urobilinogen 0.2 Ur Leukocyte Esterase Negative Urine RBC 5-10/hpf H Urine WBC None seen Urine Bacteria None seen Ur Culture Indicated? Cult not indicated Assessment & Plan Assessment & Plan narrative: Patient status post ankle surgery last evening. Unclear exactly how mobile she is. Will need physical therapy evaluation of same. May be risky having her go home and probably more reasonable have her go to [facility] facility. This discussed with her. Continue on with Hernandez catheter until she ambulates if she decides to go home then we will discontinue the Hernandez catheter. If she goes to [facility] will continue with Hernandez until she gets there. Discharge planning forthcoming
[2019-12-17] MEDS: ASPIRIN EC 81 MG TABLET PO ×2 (11:05→20:16)
[2019-12-17] MEDS: SODIUM CHLORIDE 0.9% FLUSH 10 ML IV ×2 (11:06→20:18)
--- NOTE | 2019-12-17 11:53 | CM.DPNOTE ---
DCP Cont PT has assessed and recommendation is SNF; pt/spouse are agreeable and preference is [facility]. Gave referral to May at [facility] per pt request, awaiting confirmation that pt can accepted Saturday (if medically stable). PASRR completed. AGUILA Montez
--- NOTE | 2019-12-17 14:56 | PT.IPTN ---
Surgery Performed Operation Date: 12/16/19 15:00 Actual Procedures p ORIF Ankle Fracture - Garrick Izquierdo MD Physical Therapy Treatment Note M2 PT-IP Current Condition Start: 12/17/19 11:50 Freq: NEEDED Status: Active Protocol: Document 12/17/19 10:12 AB (Rec: 12/17/19 12:02 AB [id number]) Physical Therapy Current Condition Current Condition Evaluation Date 12/17/19 Treatment Diagnosis R ankle fx s/p ORIF; difficulty in walking Onset Date 12/15/2019 Precautions Brace R ankle on a soft cast Weight Bearing Status Weight Bearing Status Non-Weight Bearing Allowed Weight Bearing Amount (enter % NWB RLE or #) (%) M3 PT-IP Subjective Start: 12/17/19 11:50 Freq: NEEDED Status: Active Protocol: Document 12/17/19 14:56 AB (Rec: 12/17/19 15:29 AB [id number]) Subjective Physical Therapy Visit Type Type Treatment Note Visit Start Time 14:56 Visit Stop Time 15:14 Total Visit Minutes 18 Number of HEAD HOST/HOSTESS Visits 0 Physical Therapy Visit Comments Patient Comments pt stated that she is tired but agreed to do PT Therapy Pain Assessment Pain When Pain Assessed At Rest Pain Present Pain Present Pain Reported Location right ankle Intensity 4 Scale Used Numeric (1 - 10) Pain Management Techniques Re-positioning,Timing of Activity with Medications M4 PT-IP Mobility and Gait Start: 12/17/19 11:50 Freq: NEEDED Status: Active Protocol: Document 12/17/19 14:56 AB (Rec: 12/17/19 15:29 AB [id number]) PT-Bed Mobility Assessment Supine to Sit Supine to Sit Standby Assistance,1 Person Assistance Sit to Supine Sit to Supine Standby Assistance,1 Person Assistance Scooting Scooting to Edge of Bed Standby Assistance PT-Transfer Assessment Sit to and From Stand Sit to and from Stand Moderate Assistance,1 Person Assistance,Use of Upper Extremities Equipment Transfer Assistive Device Gait Belt,Front Wheeled Walker Orthotic/Prosthetic Devices or Brace: Yes Comments Mobility Comments pt stated she is tired but agreed to do PT. completed supine to sit SBA requiring increase time to complete task . pt completed sit to stand mod A and cues for techniques. pt was able to maintain static standing using FWW for support min A and cues. instructed to ambulate/hop and pt was able to complete 3x with mod to max A and cues. pt wants to sit down and c/o fatigue. agreed to get up again to reposition in bed. completed sit to stand mod A and cues and able to side step NWB RLE towards HOB max A and cues. pt completed sit to supine SBA. positioned pt in bed. call light and table placed within reach. Gait Assessment Gait Gait Assistance Required: Maximum Assistance,1 Person Assist Distance (Feet) 2 Able to Maintain Weight Bearing Status Yes During Gait Assistive Devices Assistive Device Gait Belt,Front Wheeled Walker Orthotic/Prosthetic Devices or Brace: No Factors Limiting Gait Function Factors Limiting Gait Function Decreased Activity Tolerance, Decreased Strength,Limited Range of Motion,Pain,Poor Balance,Poor Safety Awareness Comments Gait Comments able to take side steps towards HOB. pls refer to mobility section for details M5 PT-IP Objective Assessments Start: 12/17/19 11:50 Freq: NEEDED Status: Active Protocol: Document 12/17/19 10:12 AB (Rec: 12/17/19 12:02 AB [id number]) Orientation Orientation/Cognition Level of Alertness Alert Orientation Name,Age,Place,Situation Language Function Ability No Deficits Noted Safety Awareness Understands Safety Issues Memory Description No Deficits Noted Gross Range of Motion Lower Extremity ROM Assessment Right Impaired Impairments R ankle on soft cast Strength Comments Strength Comments RLE on soft cast and is NWB and MMT not performed on lower leg Coordination Assessment Gross Coordination Gross Coordination WNL Sensation Assessment Sensation Gross Sensation WNL Muscle Tone Muscle Tone WNL Yes M6 PT-IP Treatment Start: 12/17/19 11:50 Freq: NEEDED Status: Active Protocol: Document 12/17/19 14:56 AB (Rec: 12/17/19 15:29 AB [id number]) Physical Therapy Treatment Exercises Exercises Ankle Pumps,Quad Sets,Heel Slides Education Education Provided Weight Bearing Status,Safety M7 PT-IP Assessment and Plan Start: 12/17/19 11:50 Freq: NEEDED Status: Active Protocol: Document 12/17/19 14:56 AB (Rec: 12/17/19 15:29 AB [id number]) PT Summary Assessment and Plan Potential Rehabilitation Potential Good Summary Impairments Pain,ROM,Strength,Balance, Coordination,Sensation,Tone, Cognition,Bed Mobility, Transfers,Gait,Activity Tolerance Progress Towards Goals Slow Progress due to Medical Issues,Slow Progress due to Activity Tolerance Assessment Summary pt continues to require mod to max A with mobility and has decrease activity tolerance affecting mobility and level of assistance. pt will require SNF rehab to improve strength and independence. Goals Bed Mobility Goal Independent Transfer Goal Standby Assistance,Front Wheeled Walker Gait Goal Standby Assistance,Front Wheel Walker Gait Distance 25 Other Goals up/down 1 step FWW min A Days to Meet Goals 10 Frequency of Treatment Frequency Of Treatment Twice a Day Treatment Plan Physical Therapy Treatment Plan Bed Mobility Training,Transfer Training,Gait Training, Therapeutic Exercise,Balance Retraining,Post Op Education, Discharge Planning,Hot or Cold Pack,Neuromuscular Re-ed, Coordination Retraining,Manual Therapy Other Recommendations and Next Treatment transfers, ambulation Focus Recommendations To Nursing Amount of Assist Needed 2 Person Assist Discharge Recommendations PT Discharge Recommendations SNF Rehab Equipment Needed for Home Before FWW; w/c; bedside commode if Discharge going home
--- NOTE | 2019-12-17 16:10 | OT.IP.TRT ---
Surgery Performed Operation Date: 12/16/19 15:00 Actual Procedures p ORIF Ankle Fracture - Garrick Izquierdo MD Occupational Therapy Treatment Note M3 OT- IP Subjective and Pain Start: 12/17/19 16:09 Freq: Status: Active Protocol: Document 12/17/19 16:09 PJM (Rec: 12/17/19 16:10 PJM [id number]) OT- Subjective Occupational Therapy Visit Type Type Administrative Note Notes OT referral received. Will initiate OT eval in AM.
[2019-12-17] MEDS: HYDROCODONE/ACET 5/325 TABLET 1 TAB PO (20:17)
[2019-12-18 00:05] VITALS: BP 135/65; PULSE 71; RESP 16; TEMP 37.1; O2SAT 94
[2019-12-18] MEDS: PANTOPRAZOLE 20 MG TABLET PO (06:03)
[2019-12-18 07:37] VITALS: BP 140/65; PULSE 62; RESP 16; TEMP 36.8; O2SAT 96
[2019-12-18] MEDS: HYDROCODONE/ACET 5/325 TABLET 2 TAB PO ×2 (08:04→13:55)
--- NOTE | 2019-12-18 09:28 | PM.PN.1 ---
Subjective Subjective Date Patient Seen: 12/18/19 Time Patient Seen: 09:28 Interval history: Patient is POD#2 s/p ORIF of right ankle trimalleolar fracture with Dr. Izquierdo. Pain continues to be well controlled with medication, but does note increased pain in the toes. Attempted to mobilize with PT yesterday, only able to complete 3 steps. Hernandez catheter remains in place. Exam Vital Signs (past 8 hours): - 12/18/19 07:37 Temperature 98.2 F Pulse Rate 62 Respiratory Rate 16 Blood Pressure 140/65 Pulse Oximetry 96 Oxygen Delivery Method Room Air Oxygen Flow Rate 0 Narrative Exam Narrative: 79 year old female resting comfortably in bed. Alert and oriented in no acute distress. Cast on right ankle is intact and dry. Patient able to flex/extend the toes. Sensation intact to light touch. Brisk capillary refill. Objective Labs Result Diagrams: 12/15/19 23:35 12/15/19 23:35 Assessment & Plan Assessment & Plan narrative: Patient progressing as expected postoperatively. She is to be NWB on the right lower extremity for 6 weeks. Recommend ASA 81mg BID x 6 weeks for DVT prophylaxis. Will need SNF due to continued poor mobility as demonstrated with PT yesterday, patient is agreeable with this. Will need outpatient orthopedic follow up with Dr. Izquierdo in 2 weeks.
[2019-12-18] MEDS: ASPIRIN EC 81 MG TABLET PO (09:47)
[2019-12-18] MEDS: LISINOPRIL 20 MG TABLET PO (09:47)
[2019-12-18] MEDS: POLYETHYLENE GLYCOL 3350 17 GM POWD.PACK PO (09:47)
[2019-12-18] MEDS: DOCUSATE 100 MG CAPSULE PO (09:47)
[2019-12-18] MEDS: FUROSEMIDE 20 MG TABLET PO (09:47)
[2019-12-18] MEDS: SODIUM CHLORIDE 0.9% FLUSH 10 ML IV (09:48)
[2019-12-18] MEDS: PROPRANOLOL ER 80 MG CAP.SA.24H PO (09:48)
--- NOTE | 2019-12-18 09:56 | PT.IPTN ---
Current Diagnoses Displaced trimalleolar fracture of right lower leg, initial encounter for open fracture type I or II (12/15/19) Surgery Performed Operation Date: 12/16/19 15:00 Actual Procedures p ORIF Ankle Fracture - Garrick Izquierdo MD Physical Therapy Treatment Note M2 PT-IP Current Condition Start: 12/17/19 11:50 Freq: NEEDED Status: Active Protocol: Document 12/17/19 10:12 AB (Rec: 12/17/19 12:02 AB [id number]) Physical Therapy Current Condition Current Condition Evaluation Date 12/17/19 Treatment Diagnosis R ankle fx s/p ORIF; difficulty in walking Onset Date 12/15/2019 Precautions Brace R ankle on a soft cast Weight Bearing Status Weight Bearing Status Non-Weight Bearing Allowed Weight Bearing Amount (enter % NWB RLE or #) (%) M3 PT-IP Subjective Start: 12/17/19 11:50 Freq: NEEDED Status: Active Protocol: Document 12/18/19 09:56 AB (Rec: 12/18/19 10:39 AB [id number]) Subjective Physical Therapy Visit Type Type Treatment Note Visit Start Time 09:56 Visit Stop Time 10:21 Total Visit Minutes 25 Number of CLINICAL BUSINESS ANALYST Visits 0 Physical Therapy Visit Comments Patient Comments pt agreeable to do PT Therapy Pain Assessment Pain When Pain Assessed At Rest Pain Present Pain Present Pain Reported Location right ankle Intensity 2 Scale Used Numeric (1 - 10) M4 PT-IP Mobility and Gait Start: 12/17/19 11:50 Freq: NEEDED Status: Active Protocol: Document 12/18/19 09:56 AB (Rec: 12/18/19 10:39 AB [id number]) PT-Bed Mobility Assessment Supine to Sit Supine to Sit Standby Assistance,Head of Bed Elevated Scooting Scooting to Edge of Bed Standby Assistance PT-Transfer Assessment Sit to and From Stand Sit to and from Stand Minimal Assistance,Moderate Assistance,Maximum Assistance, 1 Person Assistance,Use of Upper Extremities Equipment Transfer Assistive Device Gait Belt,Front Wheeled Walker Orthotic/Prosthetic Devices or Brace: Yes Transfers Transfer Destination Chair Transfer Technique Stand Step Pivot Transfer Ability Level of Assist Moderate Assistance,1 Person Assistance,Use of Upper Extremities Comments Mobility Comments pt completed supine to sit SBA with HOB elevated. completed sit to stand from EOB min to mod A and cues. pt was able to maintain standing min A using FWW for support. completed stand step pivot transfer using FWW mod A and cues to the chair. pt agreed to do ambulation and completed sit to stand from the chair x 2 attempts before able to complete requiring mod to max A and max cues. pt ambulated ~ 5 ft mod A NWB RLE and cues. positioned pt on chair. call light and table placed within reach. Gait Assessment Gait Gait Assistance Required: Moderate Assistance Distance (Feet) 5 Able to Maintain Weight Bearing Status Yes During Gait Assistive Devices Assistive Device Gait Belt,Front Wheeled Walker Orthotic/Prosthetic Devices or Brace: Yes Factors Limiting Gait Function Factors Limiting Gait Function Decreased Activity Tolerance, Decreased Strength,Limited Range of Motion,Pain,Poor Balance Comments Gait Comments pls refer to mobility section for details M5 PT-IP Objective Assessments Start: 12/17/19 11:50 Freq: NEEDED Status: Active Protocol: Document 12/17/19 10:12 AB (Rec: 12/17/19 12:02 AB [id number]) Orientation Orientation/Cognition Level of Alertness Alert Orientation Name,Age,Place,Situation Language Function Ability No Deficits Noted Safety Awareness Understands Safety Issues Memory Description No Deficits Noted Gross Range of Motion Lower Extremity ROM Assessment Right Impaired Impairments R ankle on soft cast Strength Comments Strength Comments RLE on soft cast and is NWB and MMT not performed on lower leg Coordination Assessment Gross Coordination Gross Coordination WNL Sensation Assessment Sensation Gross Sensation WNL Muscle Tone Muscle Tone WNL Yes M6 PT-IP Treatment Start: 12/17/19 11:50 Freq: NEEDED Status: Active Protocol: Document 12/18/19 09:56 AB (Rec: 12/18/19 10:39 [id number]) Physical Therapy Treatment Education Education Provided Weight Bearing Status,Safety M7 PT-IP Assessment and Plan Start: 12/17/19 11:50 Freq: NEEDED Status: Active Protocol: Document 12/18/19 09:56 AB (Rec: 12/18/19 10:39 AB [id number]) PT Summary Assessment and Plan Potential Rehabilitation Potential Good Summary Impairments Pain,ROM,Strength,Balance, Coordination,Sensation, Cognition,Bed Mobility, Transfers,Gait,Activity Tolerance Progress Towards Goals Slow Progress due to Medical Issues,Slow Progress due to Activity Tolerance Assessment Summary pt improving slowly and able to ambulate NWB RLE for ~ 5 ft using FWw mod A and cues. pt will benefit from SNF rehab to improve mobility independence. Goals Bed Mobility Goal Independent Transfer Goal Standby Assistance,Front Wheeled Walker Gait Goal Standby Assistance,Front Wheel Walker Gait Distance 25 Other Goals up/down 1 step FWW min A Days to Meet Goals 10 Frequency of Treatment Frequency Of Treatment Twice a Day Treatment Plan Physical Therapy Treatment Plan Bed Mobility Training,Transfer Training,Gait Training, Therapeutic Exercise,Balance Retraining,Post Op Education, Discharge Planning,Hot or Cold Pack,Neuromuscular Re-ed, Coordination Retraining,Manual Therapy Other Recommendations and Next Treatment transfers, ambulation Focus Recommendations To Nursing Amount of Assist Needed 2 Person Assist Discharge Recommendations PT Discharge Recommendations SNF Rehab
--- NOTE | 2019-12-18 10:15 | PM.DS.1 ---
History of Present Illness History of Present Illness Date Patient Seen: 12/18/19 Time Patient Seen: 09:20 Chief complaint: RIGHT ANKLE INJURY Narrative: Pt is a 79 year old woman with hypertension and GERD who presented after falling on the ice when going to get her mail yesterday evening. She reports that her leg went one way and her foot the other way. She had instant pain in her leg. She denies hitting her head, or any other injury to her body. She had no loss of consciousness. She denies any chest pain or any other symptoms prior to the fall, and states that she simply slipped on the ice. In the emergency department, the patient was noted to have an open fracture at the ankle. The patient reports that she has otherwise been feeling well. She is a generally healthy woman who takes antihypertensives and a PPI. Discharge Providers Provider Date of admission: 12/15/19 23:15 Discharge Date: 12/18/19 Primary care physician: Keysha Barger MD Consults: 12/16/19 12:11 Consult to Orthopedic Surgery Routine Comment: Consulting Provider: Garrick Izquierdo Reason for consultation: ankle fx 12/16/19 20:04 Consult to Physical Therapy Evaluate & Treat Comment: Physician Instructions: Evaluate and Treat 12/17/19 09:37 Consult to Discharge Planning Routine Comment: ?HH vs SNF 12/17/19 09:38 Consult to Occupational Therapy Evaluate & Treat Comment: Physician Instructions: Evaluate and treat Consult to Physical Therapy Evaluate & Treat Comment: Physician Instructions: Evaluate and Treat Discharge provider: Keysha Barger MD Summary Hospital Course Discharge Diagnosis: Open right trimalleolar ankle fracture Hypertension GERD Hospital Course: The pt was admitted due to open trimalleolar ankle fracture. She was placed NPO overnight, and underwent ORIF with Dr Izquierdo the next day. The surgery was without complications. Postoperatively, she was instructed to remain non-weightbearing for 6 weeks. She is to take 81mg Aspirin for 6 weeks as well. Due to limited upper body strenght, the pt was unable to mobilize well enough to go home, and will be discharged to SNF for additional rehab. She will continue all her usual home medications there. She will f/u with Ortho in 2 weeks. Status at Discharge Cognitive/behavioral status at discharge: oriented Functional status at discharge: wheelchair bound Overall status at discharge: patient is not back to baseline Exam Vital Signs (past 8 hours): - 12/18/19 07:37 Temperature 98.2 F Pulse Rate 62 Respiratory Rate 16 Blood Pressure 140/65 Pulse Oximetry 96 Oxygen Delivery Method Room Air Oxygen Flow Rate 0 Narrative Exam Narrative: Gen: NAD, sitting comfortably in bed, appears well CV: RRR, no murmurs Resp: clear to auscultation bilaterally Abd: soft, nontender, nondistended Ext: left with trace edema, right wrapped with warm toes Objective Labs Result Diagrams: 12/15/19 23:35 12/15/19 23:35 Discharge Plan Discharge Plan Patient Disposition: SNF Transfer to: [facility] Discharge orders & Medications Prescriptions: New hydrocodone-acetaminophen 5-325 mg Tablet 1 tab PO Q6H PRN (Reason: Mild or moderate pain) Qty: 24 RF: 0 Continued lisinopril 20 mg tablet 20 mg PO DAILY Qty: 30 RF: 3 propranolol 80 mg capsule,extended release 24hr 80 mg PO DAILY Qty: 30 RF: 12 ASPIRIN (#ASPIR 81) 81 mg PO Q DAY Qty: 0 RF: 0 furosemide 20 mg tablet 20 mg PO DAILY Qty: 30 RF: 2 Prilosec OTC 20 mg tablet,delayed release (DR/EC) 20 mg PO DAILY RF: 0 melatonin 5 mg capsule 15 mg PO BEDTIME RF: 0 Follow up/Referrals: Garrick Izquierdo MD [Physician] - 2 Weeks (Return to clinic in 2 weeks for x-ray, splint removal, wound check and suture removal, application of short leg cast) Keysha Barger MD [Primary Care Provider] - Discharge Health Status Precautions: [place] Diet/Activity/Treatments Diet: Regular Activity: NWB RLE Cold/Heat Therapy: Elevate and ICE. Do not ICE for more than 30 minutes at a time. Do not get splint wet. Catheter: 2-way Hernandez Catheter comment: Remove after arrival at facility Skin/Wound/Dressing Care Report to your healthcare provider any signs of infection, such as:: chills, fever, increased pain, unusual drainage and unusual redness Visit Report/Discharge Packet Visit Report Forms: Patient Portal/API, Stroke Signs & Symptoms Discharge Data Primary Care Provider: Keysha Barger
--- NOTE | 2019-12-18 11:16 | PC.NURSE ---
Assess- Patient is awake and complains of pain to r.ankle. Given 2 [place] with good pain control. R.lower extremity with 3+ edema, extremity is warm to touch. Pt is a 2 person max assist for staff to get up into chair. She is going to be discharged to [facility] at 1430.
[2019-12-18 11:33] VITALS: BP 116/61; PULSE 53; RESP 16; TEMP 36.9; O2SAT 95
--- NOTE | 2019-12-18 13:21 | OT.IP.TRT ---
Current Diagnoses Displaced trimalleolar fracture of right lower leg, initial encounter for open fracture type I or II (12/15/19) Surgery Performed Operation Date: 12/16/19 15:00 Actual Procedures p ORIF Ankle Fracture - Garrick Izquierdo MD Occupational Therapy Treatment Note M3 OT- IP Subjective and Pain Start: 12/17/19 16:09 Freq: Status: Active Protocol: Document 12/18/19 13:21 [facility] (Rec: 12/18/19 13:21 [facility] [id number]) OT- Subjective Occupational Therapy Visit Type Type Administrative Note Notes Pt being discharged today, therefore see skilled rehab OT for OT needs and goals.
--- NOTE | 2019-12-18 13:46 | CM.DPC ---
DCP Cont: Faxed signed med list (no hydrocodone Rx, as it was given to the patient's significant other), PAS[facility], discharge summary and SNF order to [facility], Attn: Yoanna at fax # [phone]. PAS[facility] and fax confirmation scanned in. Diane Mathis, Care Center Rep
--- NOTE | 2019-12-18 15:32 | CM.DPNOTE ---
DC Note: DC order in place for SNF by Dr Barger and pt/family remain agreeable to [facility]. Diane, Suppression Crew Leader faxed DC ppk and this RN EMERGENCY arranged, at [facility] p/u for 1430, RAGHAVENDRA Barraza made aware. JW
== END 2019-12-18 14:48 | DRG 494 ==
LOC: ED 20:27 → AC 23:15
PROVIDERS: Family Medicine; Orthopaedic Surgery Adult Reconstructive Orthopaedic Surgery; Admitting Provider Family Medicine; Emergency Provider Emergency Medicine; PCP Family Medicine; Visit Provider Family Medicine
PROC: 0QSJ04Z Reposition Right Fibula with Internal Fixation Device, Open Approach (ICD-10-PCS; principal; 2019-12-16 15:00)
DX: S82.851A Displaced trimalleolar fracture of right lower leg, initial encounter for closed fracture (principal); I10 Essential (primary) hypertension; K21.9 Gastro-esophageal reflux disease without esophagitis; W00.0XXA Fall on same level due to ice and snow, initial encounter
CPT/HCPCS: 27825; 29515; 36415; 73600; 80053; 81001; 85025; 85610; 93005; 94760; 94762; 96374; 96375; 97116; 97162; 97530; 97535; 99152; 99222; 99232; 99238; 99285; 99291; J0690; J1170; J2270; J2405; J2704; J3010

== ENCOUNTER → 2020-10-17 08:24 | Outpatient (CLI) | payer MEDICARE, BC, OTHER, SELFPAY ==
[2019-12-15 23:29] VITALS: BMI 31.8
[2020-10-17 09:47] LABS: Hemoglobin A1C% w Est Avg Glu 5.9 % (4.0-6.0)
[2020-10-17 09:50] LABS: Cholesterol 191 mg/dL (140-199); HDL Cholesterol 63 mg/dL (40-60); LDL Cholesterol Calculated 101 mg/dL (<100); Triglycerides 133 mg/dL (35-150)
== END ==
PROVIDERS: PCP Family Medicine; Referring Provider Family Medicine; Visit Provider Family Medicine
DX: I10 Essential (primary) hypertension (principal); R73.03 Prediabetes
CPT/HCPCS: 36415; 80061; 83036

== ENCOUNTER → 2020-11-29 08:30 | Outpatient (CLI) | payer MEDICARE, BC, OTHER, SELFPAY ==
[2019-12-15 23:29] VITALS: BMI 31.8
[2020-11-29 09:03] LABS: COVID19 -Nasal RAPID Negative (Negative)
== END ==
PROVIDERS: PCP Family Medicine; Visit Provider Nurse Practitioner Family
DX: R11.2 Nausea with vomiting, unspecified (principal); R51.9 Headache, unspecified
CPT/HCPCS: 87086; 87635

== ENCOUNTER → 2022-05-17 07:37 | Outpatient (CLI) | payer MEDICARE, SELFPAY ==
[2019-12-15 23:29] VITALS: BMI 31.8
[2022-05-17 08:26] LABS: Hemoglobin A1C% w Est Avg Glu 5.8 % (4.0-6.0)
[2022-05-17 08:41] LABS: Alanine Aminotransferase 16 IU/L (<35); Albumin 4.5 g/dL (3.5-5.0); Albumin Globulin Ratio 1.6 (1.0-2.8); Alkaline Phosphatase 57 U/L (38-126); Aspartate Aminotransferase 24 IU/L (14-36); BUN Creatinine Ratio 16.9 (6-22); Bilirubin Total 0.7 mg/dL (0.2-1.3); Blood Urea Nitrogen 12 mg/dL (7-17); Calcium 9.3 mg/dL (8.4-10.2); Carbon Dioxide 26 mmol/L (22-32); Chloride 106 mmol/L (98-107); Cholesterol 230 mg/dL (140-199); Estimated Glomerular Filt Rate > 60 mL/min (>60); Globulin 2.9 g/dL (1.7-4.1); Glucose 117 mg/dL (80-110); HDL Cholesterol 88 mg/dL (40-60); HEMOLYSIS < 15 (0-50); LDL Cholesterol Calculated 123 mg/dL (<100); Potassium 4.1 mmol/L (3.4-5.1); Sodium 139 mmol/L (137-145); Total Protein 7.4 g/dL (6.3-8.2); Triglycerides 94 mg/dL (35-150)
[2022-05-17 09:02] LABS: Creatinine Urine Random 58 mg/dL; Microalbumi Creatinin Ratio Ur 12.1 ug/mg CR (<30); Microalbumin Urine Random 0.7 mg/dL (0-1.6)
== END ==
PROVIDERS: PCP Family Medicine; Referring Provider Family Medicine; Visit Provider Family Medicine
DX: R73.03 Prediabetes (principal); I10 Essential (primary) hypertension
CPT/HCPCS: 36415; 80053; 80061; 82043; 82570; 83036

== ENCOUNTER 2022-06-07 16:48 | Emergency (ER) | payer MEDICARE, SELFPAY ==
[2019-12-15 23:29] VITALS: BMI 31.8
[2022-06-07 16:50] VITALS: BP 199/91; PULSE 67; RESP 15; TEMP 37; O2SAT 95; BMI 31.2
--- NOTE | 2022-06-07 16:54 | DI.RAD.S_ITS ---
PROCEDURE: XR LUMBAR SPINE 2-3V INDICATIONS: fall with lower back pain TECHNIQUE: 3 views of the lumbar spine were acquired. COMPARISON: None. FINDINGS: Bones: 5 [id number] vertebrae are present. There is normal bony alignment. Minimal height loss at L3. Facet joint hypertrophy most pronounced at L5. Small vertebral body osteophytes. No suspicious bony lesions. Soft tissues: Overlying bowel gas pattern is normal. No suspicious soft tissue calcifications. IMPRESSION: Minimal height loss at L3. Dictated by: Eros Brown M.D. on 06/07/2022 at 18:37 Approved by: Eros Brown M.D. on 06/07/2022 at 18:39
[2022-06-07 17:00] VITALS: BP 184/77; PULSE 66; RESP 18; O2SAT 99
--- NOTE | 2022-06-07 18:22 | ED_ITS ---
HPI - Fall <Onofre Rowan PA-C - Last Filed: 06/07/22 19:02> General Chief Complaint: Fall Stated Complaint: Low back pain after trip/fall,no thinners. Time Seen by Provider: 06/07/22 17:42 Source: patient Mode of arrival: EMS History of Present Illness HPI Narrative: This is a 82-year-old female presents to the emergency department due to tripping and falling and landing on her buttocks complaining of lumbar pain. Denies any saddle paresthesia, lower extremity numbness or weakness, urinary bowel incontinence, or any other concerning signs or symptoms. Not on blood thinners. Did not hit her head or lose consciousness. Related Data Home Medications Medication Instructions Recorded Confirmed ASPIRIN (#ASPIR 81) 81 mg PO Q DAY ##0 06/11/12 04/20/22 omeprazole magnesium 20 mg 20 mg PO DAILY 04/30/19 04/20/22 tablet,delayed release (Prilosec OTC) melatonin 5 mg capsule 20 mg PO BEDTIME 05/04/20 04/20/22 Previous Rx's Medication Instructions Recorded hydrocodone 5 mg-acetaminophen 325 1 - 2 tab PO Q6H PRN pain #24 tabs 12/18/19 mg tablet propranolol 120 mg 120 mg PO DAILY #90 caps 08/02/20 capsule,extended release 24 hr ondansetron 4 mg disintegrating 4 mg PO Q8H PRN nausea and 11/29/20 tablet vomiting #7 tabs furosemide 20 mg tablet 20 mg PO DAILY #90 tabs 12/08/21 lisinopril 40 mg tablet 40 mg PO DAILY #90 tabs 12/08/21 metoprolol succinate 100 mg See Rx Instructions .Route 04/20/22 tablet,extended release 24 hr .COMPLEX #30 tabs trazodone 50 mg tablet 50 mg PO BEDTIME PRN insomnia #30 04/20/22 tabs triamcinolone acetonide 0.5 % 1 applic topical BID #15 grams 04/24/22 topical cream Allergies Allergy/AdvReac Type Severity Reaction Status Date / Time No Known Drug Allergies Allergy Verified 06/07/22 16:55 Review of Systems <Onofre Rowan PA-C - Last Filed: 06/07/22 19:02> Review of Systems Narrative: GENERAL: Denies chills, fatigue, malaise, fever, sweats. HEENT: Denies sinus pain, ear pain, sore throat, difficulty swallowing, dizziness. RESPIRATORY: Denies dyspnea, cough, wheezing, hemoptysis, sputum. CARDIOVASCULAR: Denies chest pain, palpitations, orthopnea, edema, GASTROINTESTINAL: Denies nausea, vomiting, abdominal pain, diarrhea, constipation, melena. : Denies dysuria, frequency, incontinence, hematuria, urinary retention. MUSCULOSKELETAL: denies weakness, joint pain, or bony pain SKIN: Denies rash, skin lesions, or other NEUROLOGIC: Denies weakness, numbness, headache, numbness, change in speech, confusion, seizures, incoordination. PSYCHIATRIC: No concerning psychosocial issues. Back: Reports back pain 12 point review of systems is negative except for those stated above Patient History <Onofre Rowan PA-C - Last Filed: 06/07/22 19:02> Medical History (Updated 06/07/22 @ 19:02 by Onofre Rowan PA-C) Hypertension Obesity Surgical History Status post appendectomy Family History Brother Heart disease Father Heart disease Social History marital status: number of children: 2 household members: spouse lives independently: Yes caregiver/support person: No housing: house Smoking Status: Never smoker second hand exposure: No alcohol intake: current substance use type: does not use Smoking Status: Never smoker alcohol intake frequency: a few times a month Substance Use Type: does not use Exam <Onofre Rowan PA-C - Last Filed: 06/07/22 19:02> Narrative Exam Narrative: GENERAL: Well-developed patient, in mild distress. HEAD: Atraumatic. Normocephalic. EYES: Pupils equal round and reactive. Extraocular motions intact. No scleral icterus. No injection or drainage. ENT: Nose without bleeding, purulent drainage. Throat without erythema, tonsillar hypertrophy or exudate. Airway patent. NECK: Trachea midline. Non tender CARDIOVASCULAR: Regular rate and rhythm without murmurs, gallops, or rubs. RESPIRATORY: Clear to auscultation. Breath sounds equal bilaterally. No wheezes, rales, or rhonchi. GASTROINTESTINAL: Abdomen soft, non-tender, nondistended. EXTREMITIES: No edema or joint tenderness. BACK: Mild tenderness to palpation to the midline lumbar spine without bony crepitus NEURO: AOx3. SKIN: No rash or erythema of visible areas Initial Vital Signs Initial Vital Signs: Vital Signs Temperature 98.6 F 06/07/22 16:50 Pulse Rate 67 06/07/22 16:50 Respiratory Rate 15 06/07/22 16:50 Blood Pressure 199/91 H 06/07/22 16:50 Pulse Oximetry 95 06/07/22 16:50 Oxygen Delivery Method 06/07/22 16:50 <Mary Ann Hurt DO - Last Filed: 06/08/22 09:48> Initial Vital Signs Initial Vital Signs: Vital Signs Temperature 98.6 F 06/07/22 16:50 Pulse Rate 67 06/07/22 16:50 Respiratory Rate 15 06/07/22 16:50 Blood Pressure 199/91 H 06/07/22 16:50 Pulse Oximetry 95 06/07/22 16:50 Oxygen Delivery Method 06/07/22 16:50 Course <Onofre Rowan PA-C - Last Filed: 06/07/22 19:02> Orders Ordered: Discontinued Medications Ketorolac Tromethamine (Ketorolac 30 Mg/Ml Vial) 15 mg IM NOW ONE Stop: 06/07/22 18:19 Last Admin: 06/07/22 18:24 Dose: 15 mg Documented By: AT Vital Signs Vital signs: Vital Signs - 8 hr 06/07/22 16:50 06/07/22 17:00 Temperature 98.6 F Pulse Rate 67 66 Respiratory Rate 15 18 Blood Pressure 199/91 H 184/77 H Pulse Oximetry 95 99 Oxygen Delivery Method Room Air Room Air <Mary Ann Hurt DO - Last Filed: 06/08/22 09:48> Orders Ordered: Discontinued Medications Ketorolac Tromethamine (Ketorolac 30 Mg/Ml Vial) 15 mg IM NOW ONE Stop: 06/07/22 18:19 Last Admin: 06/07/22 18:24 Dose: 15 mg Documented By: AT Vital Signs Vital signs: Vital Signs - 8 hr 06/07/22 16:50 06/07/22 17:00 Temperature 98.6 F Pulse Rate 67 66 Respiratory Rate 15 18 Blood Pressure 199/91 H 184/77 H Pulse Oximetry 95 99 Oxygen Delivery Method Room Air Room Air MDM - Fall <Onofre Rowan PA-C - Last Filed: 06/07/22 19:02> Imaging Data Extremity x-ray #1: Radiologist's Impression: [address] [address] XRay Report Signed Patient: Dee Mckenna MR#: [id number] : 1940 Acct:[id number] Age/Sex: 82 / F Date of Service: 06/07/22 Loc: ED Accession Number: [id number] ?? Procedure: XR lumbar spine 2-3V Ordering Provider: Mary Ann Hurt D.O. PROCEDURE:? XR LUMBAR SPINE 2-3V ? INDICATIONS:? fall with lower back pain ? TECHNIQUE:? 3 views of the lumbar spine were acquired.? ? COMPARISON:? None. ? FINDINGS:? ? Bones:? 5 hxi-bld-thunlki vertebrae are present.? There is normal bony alignment.? Minimal height loss at L3.? Facet joint hypertrophy most pronounced at L5.? Small vertebral body osteophytes.? No suspicious bony lesions.? ? Soft tissues:? Overlying bowel gas pattern is normal.? No suspicious soft tissue calcifications.? ? ? IMPRESSION:? Minimal height loss at L3. ? ? Dictated by: Eros Brown M.D. on 06/07/2022 at 18:37 ? ? Approved by: Eros Brown M.D. on 06/07/2022 at 18:39 ? [facility] Narrative Medical decision making narrative: This is a 82-year-old female presents to the emergency department due to lower back pain after falling on her buttocks. Patient not exhibit any numbness or buttock pain but did present with midline lumbar spinal tenderness palpation. X-ray showed minimal height loss at L3 although no definite compression fracture in her on read. There are no symptoms of cauda equina such as saddle anesthesia, and decreased reflexes, decreased sensation or strength. Recommended symptomatic and conservative management. Discharge Plan Departure Patient Disposition: Home Clinical Impression: Back pain Instructions: DI for Low Back Pain Activity Restrictions/Additional Instructions: Thank you for coming to the [facility] Emergency Department today. As we discussed you do show minimal loss of height in your vertebrae although you do not have any acute fractures. Please read the attached instructions for wheezing treat your pain. Please follow-up with your primary care provider within the week for further evaluation and management. I hope you feel better soon. Prescriptions: No Action ondansetron 4 mg tablet,disintegrating 4 mg PO Q8H PRN (Reason: nausea and vomiting) Qty: 7 0RF propranolol 120 mg capsule,extended release 24hr 120 mg PO DAILY Qty: 90 3RF Hold Instructions: Home Medication placed on hold at Doctor's office trazodone 50 mg tablet 50 mg PO BEDTIME PRN (Reason: insomnia) Qty: 30 2RF metoprolol succinate 100 mg tablet extended release 24 hr See Rx Instructions .ROUTE .COMPLEX Qty: 30 1RF Dose Instruction: take 1 tablet by mouth once daily Rx Instructions: take 1 tablet by mouth once daily ASPIRIN (#ASPIR 81) 81 mg PO Q DAY Qty: 0 furosemide 20 mg tablet 20 mg PO DAILY Qty: 90 1RF lisinopril 40 mg tablet 40 mg PO DAILY Qty: 90 1RF triamcinolone acetonide 0.5 % cream 1 applic topical BID Qty: 15 0RF Prilosec OTC 20 mg tablet,delayed release (DR/EC) 20 mg PO DAILY Rx Instructions: takes as needed melatonin 5 mg capsule 20 mg PO BEDTIME hydrocodone-acetaminophen 5-325 mg tablet 1 - 2 tab PO Q6H PRN (Reason: pain) Qty: 24 0RF Referrals: Keysha Barger MD [Primary Care Provider] - Visit Report Forms: Patient Portal/API <Mary Ann Hurt DO - Last Filed: 06/08/22 09:48> Cosign ED Attending Ravi Attestation: I was immediately available in the department for consultation. Documentation has been reviewed. I agree with assessment and plan.
[2022-06-07] MEDS: KETOROLAC 30 MG/ML VIAL 15 MG IM (18:24)
[2022-06-07 19:08] VITALS: BP 193/79; PULSE 70; RESP 18; O2SAT 99
== END 2022-06-07 19:14 | disposition home or self-care (01) ==
PROVIDERS: Emergency Provider Physician Assistant Medical; PCP Family Medicine
DX: M54.50 Low back pain, unspecified (principal); W19.XXXA Unspecified fall, initial encounter
CPT/HCPCS: 72100; 96372; 99283; J1885

== ENCOUNTER → 2022-06-12 11:51 | Outpatient (CLI) | payer MEDICARE, SELFPAY ==
[2019-12-15 23:29] VITALS: BMI 31.8
[2022-06-12 16:09] LABS: Appearance Urine UA CLEAR; Bilirubin Urine UA NEGATIVE (NEGATIVE); Color Urine UA YELLOW; Glucose Urine UA NEGATIVE (Negative); Ketones Urine UA NEGATIVE (NEGATIVE); Leukocyte Esterase Urine UA NEGATIVE (NEGATIVE); Nitrite Urine UA NEGATIVE (Negative); Occult Blood Urine UA TRACE-LYSED (Negative); Protein Urine UA NEGATIVE (Negative); Specific Gravity Urine UA <=1.005 (1.000-1.035)
[2022-06-12 16:34] LABS: Bacteria Urine None Seen; RBC Urine 0-1/HPF (0-5/HPF); Squamous Epithelial Cell Urine 1-5 /HPF (0-5/HPF); Transitional Epi Cells Urine 0-1/HPF (0-5/HPF); WBC Urine None Seen (0-5/HPF)
== END ==
PROVIDERS: PCP Family Medicine; Visit Provider Family Medicine
DX: N23 Unspecified renal colic (principal); R10.9 Unspecified abdominal pain
CPT/HCPCS: 81001; 87077; 87086; 87186

== ENCOUNTER → 2022-06-16 15:06 | Outpatient (CLI) | payer MEDICARE, SELFPAY ==
[2019-12-15 23:29] VITALS: BMI 31.8
--- NOTE | 2022-06-16 15:10 | DI.MRI.S_ITS ---
PROCEDURE: MR LUMBAR SPINE WO CON INDICATIONS: Acute onset lower back pain TECHNIQUE: Noncontrast sagittal T1 spin echo and T2 fast echo, sagittal STIR, and T2 fast spin echo through the lumbar spine. In cases with scoliosis, additional coronal T2 fast spin echo may be performed. COMPARISON: [facility], CR, XR LUMBAR SPINE 2-3V, 06/07/2022, 16:55. FINDINGS: Image quality: Excellent. Alignment and Curvature: There is normal bony alignment. Bone Marrow: There is an acute compression fracture involving the L3 vertebral body with increased loss of anterior vertebral body height of approximately 20%. This is increased compared to minimal anterior vertebral body height loss seen on comparison radiograph dated June 07, 2022. No evidence for abnormal marrow signal in the posterior elements or pedicles at this level. Linear fracture lines are noted in the mid vertebral body of L3. No suspicious paravertebral soft tissue masses. Remainder of the visualized osseous structures demonstrate normal marrow signal intensity. Spinal Cord: Conus medullaris terminates at the L1-L2 level. Visualized cord demonstrates normal signal and size. Paraspinous Soft Tissues: No paravertebral masses. Subcentimeter right renal T2 hyperintense lesion compatible with a cyst. T12-L1: Mild bilateral facet arthropathy. No significant neural foraminal or spinal canal stenosis. L1-L2: Mild bilateral facet arthropathy. No significant neural foraminal or spinal canal stenosis. L2-L3: Mild-moderate bilateral facet arthropathy. Degenerative endplate changes. Symmetric disc bulge. No significant neural foraminal or spinal canal stenosis. L3-L4: Moderate bilateral facet arthropathy. Small symmetric disc bulge. Mild degenerative endplate changes. Mild bilateral neural foraminal narrowing. Mild spinal canal stenosis. L4-L5: Moderate bilateral facet arthropathy. Ligamentum flavum hypertrophy. Small symmetric disc bulge. Mild-moderate left and mild right bilateral neural foraminal stenosis. Mild-moderate spinal canal stenosis. L5-S1: Mild-moderate bilateral facet arthropathy. Broad-based posterior disc herniation. Mild right and mild-moderate left bilateral neural foraminal stenosis. Mild spinal canal stenosis. IMPRESSION: 1. Interval development of acute compression fracture of the L3 vertebral body with approximately 20% loss of the vertebral body height. There is mild bilateral neural foraminal stenosis and mild spinal canal stenosis at L3-4. No significant neural foraminal or spinal canal stenosis at L2-3. 2. Multilevel, multifactorial spondylosis of the lumbar spine. Details as above by vertebral body level. Dictated by: Lemuel Handley M.D. on 06/18/2022 at 10:52 Approved by: Lemuel Handley M.D. on 06/18/2022 at 12:13
== END ==
PROVIDERS: PCP Family Medicine; Referring Provider Family Medicine; Visit Provider Family Medicine
DX: M48.56XA Collapsed vertebra, not elsewhere classified, lumbar region, initial encounter for fracture (principal); M48.061 Spinal stenosis, lumbar region without neurogenic claudication; M47.816 Spondylosis without myelopathy or radiculopathy, lumbar region
CPT/HCPCS: 72148

== ENCOUNTER → 2022-11-06 15:35 | Outpatient (CLI) | payer MEDICARE, SELFPAY ==
[2022-10-29 15:37] VITALS: BMI 31.8
--- NOTE | 2022-11-06 15:40 | DI.MRI.S_ITS ---
PROCEDURE: MR LUMBAR SPINE WO CON INDICATIONS: Persistent pain w/no relief since fall in June 2022 TECHNIQUE: Noncontrast sagittal T1 spin echo and T2 fast echo, sagittal STIR, and T2 fast spin echo through the lumbar spine. In cases with scoliosis, additional coronal T2 fast spin echo may be performed. COMPARISON: [facility], CR, XR LUMBAR SPINE 2 OR 3 VIEWS, 09/11/2022, 14:06. [facility], MR, MR LUMBAR SPINE WO CON, 06/16/2022, 16:17. FINDINGS: Image quality: Excellent. Alignment and Curvature: There is normal bony alignment. Bone Marrow: Interval increase in a compression fracture of L3, now severe, with approximately 70% midportion vertebral body height loss. There is a small amount of residual edema present in the vertebral body indicating that this is a subacute fracture at this point. Spinal Cord: Conus medullaris terminates at the L1-L2 level. Visualized cord demonstrates normal signal and size. Paraspinous Soft Tissues: No paravertebral masses. T11-T12: No canal stenosis or foraminal stenosis. T12-L1: No canal stenosis or foraminal stenosis. L1-L2: No canal stenosis or foraminal stenosis. L2-L3: Slight interval increase in diffuse disc bulge with shallow superior disc extrusion. Mild canal stenosis. Mild bilateral foraminal stenosis. L3-L4: Facet hypertrophy. No canal stenosis. Moderate left foraminal narrowing with flattening deformity on the exiting left L3 nerve root. L4-L5: Disc bulge. Facet hypertrophy. No canal stenosis. No significant foraminal stenosis. L5-S1: Facet hypertrophy. No canal stenosis or significant foraminal stenosis. IMPRESSION: 1. Interval Re fracture of L3, with a severe compression now present. There is still some edema present in the vertebral body indicating a degree of subacuity period 2. Multilevel degenerative change. There is mild canal stenosis at L2-L3. There is moderate left foraminal narrowing at L3-L4. Dictated by: Napoleon Mercedes M.D. on 11/06/2022 at 18:42 Approved by: Napoleon Mercedes M.D. on 11/06/2022 at 18:48
== END ==
PROVIDERS: PCP Family Medicine; Referring Provider Physician Assistant; Visit Provider Physician Assistant
DX: M51.27 Other intervertebral disc displacement, lumbosacral region (principal); S32.030G Wedge compression fracture of third lumbar vertebra, subsequent encounter for fracture with delayed healing; M47.816 Spondylosis without myelopathy or radiculopathy, lumbar region; M47.817 Spondylosis without myelopathy or radiculopathy, lumbosacral region; M48.061 Spinal stenosis, lumbar region without neurogenic claudication; W19.XXXD Unspecified fall, subsequent encounter
CPT/HCPCS: 72148

== ENCOUNTER 2023-05-08 14:45 | Outpatient (RCR) | payer MEDICARE, SELFPAY ==
[2022-10-29 15:37] VITALS: BMI 31.8
--- NOTE | 2023-03-13 10:30 | PT.OIE ---
Current Diagnoses Pain in other specified joint (03/13/23) Stiffness of other specified joint, not elsewhere classified (03/13/23) Wedge compression fracture of unspecified lumbar vertebra, initial encounter for closed fracture (03/13/23) Wedge compression fracture of unspecified lumbar vertebra, subsequent encounter for fracture with routine healing (03/13/23) Wedge compression fracture of third lumbar vertebra, initial encounter for closed fracture (03/13/23) Wedge compression fracture of third lumbar vertebra, subsequent encounter for fracture with routine healing (03/13/23) Past Medical History (Last Reviewed 12/16/19 @ 15:10 by Garrick Izquierdo MD) Hypertension Obesity Past Surgical History (Last Reviewed 12/15/19 @ 23:05 by Branden Shipley MD) Status post appendectomy Visit Care Team Role Provider Type Keysha Barger MD Family Provider Physician Primary Care Provider Specialty: Family Practice Address: [address] [place] [address], [id number] Email: [email or web address] Kaylee Howard PA-C Attending Provider [employer] Referring Provider Specialty: Medical Address: [address], [facility] Email: [email or web address] Physical Therapy Initial Evaluation PT-OP-A Visit Information Start: 03/13/23 17:50 Freq: Status: Active Protocol: Document 03/13/23 09:50 DCW (Rec: 03/13/23 18:05 DCW [id number]) Out-Patient Physical Therapy Visit Information Visit Information Visit Type Initial Evaluation Visit Start Time 09:50 Visit Stop Time 10:30 Total Visit Minutes 40 Visit Number 1 Number of KAI WHAKARURUHAU Visits 0 Evaluation Information Evaluation Date 03/13/23 PT-OP-B Current Condition Start: 03/13/23 17:50 Freq: Status: Active Protocol: Document 03/13/23 09:50 DCW (Rec: 03/13/23 18:05 DCW [id number]) Current Condition History of Current Condition Onset Date 06/13/22 Current Complaints Low back pain, limited standing/activity tolerance, Compression fracture History of Current Condition Pt is an 83 year old female presenting 9 months s/p lumbar compression fracture (L3) caused by fall off her steps. Reports that in 2019, she had broken her ankle, and they had put in a ramp to help her get into/out of her house. In June, pt's spilled paint on the ramp, removed it to clean up, pt forgot it had been moved, and just walked out and stepped off her porch, expecting the ramp to be there. Although she has improved some, pt still has very significant, very limiting pain with nearly all activities. Admits she could barely move for six months following her fall, which has resulted in weakness and poor activity tolerance, in addition to continuing lumbar pain. Admits she cannot stand, sit, or walk for longer than 30 minutes without severe pain increase. Has significant difficulty with cooking or unloading dishwasher busser. Typically uses SPC for community ambulation, and has since ankle fracture, but walks around her home without an assistive device. Prior Treatments and Tests Lumbar MRI: IMPRESSION: 1. Interval Re fracture of L3, with a severe compression now present. There is still some edema present in the vertebral body indicating a degree of subacuity period. 2. Multilevel degenerative change . There is mild canal stenosis at L2-L3. There is moderate left foraminal narrowing at L3-L4. per Napoleon Mercedes M.D. on 11/06 PT-OP-C Subjective Start: 03/13/23 17:50 Freq: Status: Active Protocol: Document 03/13/23 09:50 DCW (Rec: 03/13/23 18:05 [facility] [id number]) OP-PT Subjective Patient Comments Patient Comments I'm the only one that drives, and my has his own issues going on, so I'm just running ragged. PT-OP-E Functional Tests Start: 03/13/23 17:50 Freq: Status: Active Protocol: Document 03/13/23 09:50 DCW (Rec: 03/13/23 18:05 DCW [id number]) Functional Tests Five Times Sit to Stand Test Score 30.17 Timed Up and Go (TUG) Score 15.61 /c SPC Comments Three-trial average (16.41, 15.66, 14.77) TUG Impairment Rating 60 to <80% Impaired (Score 16- 17) PT-OP-K Range of Motion Start: 03/13/23 17:50 Freq: Status: Active Protocol: Document 03/13/23 09:50 DCW (Rec: 03/13/23 18:08 DCW [id number]) Lumbar Spine Range of Motion Lumbar Spine Active Degrees Testing Position Standing Flexion 60 Extension 15 ROM Limitations Pain PT-OP-M Strength Start: 03/13/23 17:50 Freq: Status: Active Protocol: Document 03/13/23 09:50 DCW (Rec: 03/13/23 18:08 DCW [id number]) Trunk Strength Trunk Manual Muscle Testing Core Stabilization Pt able to gently contract abdominal muscles and almost immediately fatigues and relaxes after ~1 second Hip Strength Hip Manual Muscle Testing Right Flexion (L2) 4- Good- Abduction 3+ Fair+ Adduction 4 Good External Rotation 4 Good Internal Rotation 4 Good Left Flexion (L2) 4 Good Abduction 3+ Fair+ Adduction 4 Good External Rotation 4 Good Internal Rotation 4 Good Knee Strength Knee Manual Muscle Testing Right Flexion (S2) 4 Good Extension (L3) 4 Good Left Flexion (S2) 4 Good Extension (L3) 4 Good Ankle/Foot Strength Ankle and Foot Manual Muscle Testing Right Dorsiflexion (L4) 4 Good Left Dorsiflexion (L4) 4 Good PT-OP-Q Treatments Start: 03/13/23 17:50 Freq: Status: Active Protocol: Document 03/13/23 09:50 DCW (Rec: 03/13/23 18:06 DCW [id number]) Therapeutic Exercises Supine Exercises LTR Supine Exercise Name LTR /c TrA contraction Marching Supine Exercise Name PPT /c Marching PPT Supine Exercise Name PPT /c TrA contraction PT-OP-T Assessment and Plan Start: 03/13/23 17:50 Freq: Status: Active Protocol: Document 03/13/23 09:50 DCW (Rec: 03/14/23 16:17 DCW [id number]) Physical Therapy Assessment Rehab Potential Rehabilitation Potential Fair Evaluation Complexity Number of Personal Factors/Comorbidities 3 or More Number of Body Systems Impaired 3 Clinical Presentation at Evaluation Unstable Impairments Impairments Activity Tolerance,Balance, Functional Activities, Functional Mobility,Gait,Pain, Posture,ROM,Soft Tissue Mobility,Strength,Tone Goals Two Impairment Pt unable to stand longer than 30 minutes without pain Environmental Remediation Specialist Goal (LTG) Pt to improve core strength to enable her to perform her usual household activities, such as cooking, for at least 60 minutes without increased low back pain. LTG Duration 06/11/23 One Impairment Pt does not have an appropriate home exercise program Short Term Goal (STG) Pt to be independent and compliant with an appropriate HEP STG Duration 04/12/23 Assessment Summary Assessment Pt presents with signs and symptoms consistent with referring diagnosis of lumbar compression fracture secondary to fall nine months ago. Pt struggles with any extended positioning, and has difficulty completing daily activities secondary to fairly severe pain. Between 5x Sit to Stand test and TUG, pt demonstrates poor activity tolerance and decreased functional mobility, as well as an increased falls risk. LE strength, especially in the hips, is limited. Pt's prior right ankle fractue may be a limiting factor for skilled therapeutic intervention going forward. Pt should benefit from skilled therapy focusing on LE strengthening, core stabilization, balance training, and gait training. Pt admits her co-pay will likely be a financial hardship , and may influence her ability to participate in PT. Discussed importance of following HEP, will likely focus strongly on transitioning to appropriate independent HEP as quickly as possible. Physical Therapy Plan Frequency and Duration Frequency of Treatment 1-2x/week Plan of Care Start Date 03/13/23 Plan of Care End Date 06/11/23 Therapeutic Interventions Therapeutic Interventions Balance Training,Home Exercise Program,Joint Mobilizations, Manual Therapy,Neuromuscular Re-education,Patient/Caregiver Education,Self-Care/Home Management,Soft Tissue Mobilization,Therapeutic Activities,Therapeutic Exercises Next Visit Focus/Plan Next Note Type Treatment Note Next Visit Plan Core and LE strengthening, balance training
--- NOTE | 2023-03-13 10:31 | PT.OPPOC ---
Physical, Occupational & Speech Therapy At [facility] Current Diagnoses Pain in other specified joint (03/13/23) Stiffness of other specified joint, not elsewhere classified (03/13/23) Wedge compression fracture of unspecified lumbar vertebra, initial encounter for closed fracture (03/13/23) Wedge compression fracture of unspecified lumbar vertebra, subsequent encounter for fracture with routine healing (03/13/23) Wedge compression fracture of third lumbar vertebra, initial encounter for closed fracture (03/13/23) Wedge compression fracture of third lumbar vertebra, subsequent encounter for fracture with routine healing (03/13/23) Visit Care Team Role Provider Type Keysha Barger MD Family Provider Physician Primary Care Provider Specialty: Family Practice Address: [address] [place] [address], [id number] Email: [email or web address] Kaylee Howard PA-C Attending Provider Advanced Stunner And Shackler Referring Provider Specialty: Medical Address: [address], [facility] Email: [email or web address] Plan Of Care PT-OP-T Assessment and Plan Start: 03/13/23 17:50 Freq: Status: Active Protocol: Document 03/13/23 09:50 DCW (Rec: 03/14/23 16:17 DCW [id number]) Physical Therapy Assessment Rehab Potential Rehabilitation Potential Fair Evaluation Complexity Number of Personal Factors/Comorbidities 3 or More Number of Body Systems Impaired 3 Clinical Presentation at Evaluation Unstable Impairments Impairments Activity Tolerance,Balance, Functional Activities, Functional Mobility,Gait,Pain, Posture,ROM,Soft Tissue Mobility,Strength,Tone Goals Two Impairment Pt unable to stand longer than 30 minutes without pain Shelter Goal (LTG) Pt to improve core strength to enable her to perform her usual household activities, such as cooking, for at least 60 minutes without increased low back pain. LTG Duration 06/11/23 One Impairment Pt does not have an appropriate home exercise program Short Term Goal (STG) Pt to be independent and compliant with an appropriate HEP STG Duration 04/12/23 Assessment Summary Assessment Pt presents with signs and symptoms consistent with referring diagnosis of lumbar compression fracture secondary to fall nine months ago. Pt struggles with any extended positioning, and has difficulty completing daily activities secondary to fairly severe pain. Between 5x Sit to Stand test and TUG, pt demonstrates poor activity tolerance and decreased functional mobility, as well as an increased falls risk. LE strength, especially in the hips, is limited. Pt's prior right ankle fractue may be a limiting factor for skilled therapeutic intervention going forward. Pt should benefit from skilled therapy focusing on LE strengthening, core stabilization, balance training, and gait training. Pt admits her co-pay will likely be a financial hardship , and may influence her ability to participate in PT. Discussed importance of following HEP, will likely focus strongly on transitioning to appropriate independent HEP as quickly as possible. Physical Therapy Plan Frequency and Duration Frequency of Treatment 1-2x/week Plan of Care Start Date 03/13/23 Plan of Care End Date 06/11/23 Therapeutic Interventions Therapeutic Interventions Balance Training,Home Exercise Program,Joint Mobilizations, Manual Therapy,Neuromuscular Re-education,Patient/Caregiver Education,Self-Care/Home Management,Soft Tissue Mobilization,Therapeutic Activities,Therapeutic Exercises Next Visit Focus/Plan Next Note Type Treatment Note Next Visit Plan Core and LE strengthening, balance training Plan of Care Dates Plan of Care Start Date 03/13/23 Plan of Care End Date 06/11/23 Electronically Signed by: Jorgito Gudino, PT 03/14/23 [id number] If you are in agreement with this Plan of Care, please return a signed and dated copy. I have reviewed this Plan of Care and certify that the skilled therapy services above are required to meet the patient?s needs. Physician Signature Date Printed Name and Credentials Clinical Instructor Signature Printed Name and Credentials
--- NOTE | 2023-03-20 15:15 | PT.OTN ---
Current Diagnoses Pain in other specified joint (03/20/23) Stiffness of other specified joint, not elsewhere classified (03/20/23) Wedge compression fracture of unspecified lumbar vertebra, initial encounter for closed fracture (03/20/23) Wedge compression fracture of unspecified lumbar vertebra, subsequent encounter for fracture with routine healing (03/20/23) Wedge compression fracture of third lumbar vertebra, initial encounter for closed fracture (03/20/23) Wedge compression fracture of third lumbar vertebra, subsequent encounter for fracture with routine healing (03/20/23) Physical Therapy Treatment Note PT-OP-A Visit Information Start: 03/13/23 17:50 Freq: Status: Active Protocol: Document 03/20/23 14:30 DCW (Rec: 03/20/23 15:15 DCW [id number]) Out-Patient Physical Therapy Visit Information Visit Information Visit Type Treatment Note Visit Start Time 14:30 Visit Stop Time 15:15 Total Visit Minutes 45 Visit Number 2 Number of POLICY CHANGE CLERK Visits 0 Evaluation Information Evaluation Date 03/13/23 PT-OP-B Current Condition Start: 03/13/23 17:50 Freq: Status: Active Protocol: Document 03/13/23 09:50 DCW (Rec: 03/13/23 18:05 DCW [id number]) Current Condition History of Current Condition Onset Date 06/13/22 Current Complaints Low back pain, limited standing/activity tolerance, Compression fracture History of Current Condition Pt is an 83 year old female presenting 9 months s/p lumbar compression fracture (L3) caused by fall off her steps. Reports that in 2019, she had broken her ankle, and they had put in a ramp to help her get into/out of her house. In June, pt's spilled paint on the ramp, removed it to clean up, pt forgot it had been moved, and just walked out and stepped off her porch, expecting the ramp to be there. Although she has improved some, pt still has very significant, very limiting pain with nearly all activities. Admits she could barely move for six months following her fall, which has resulted in weakness and poor activity tolerance, in addition to continuing lumbar pain. Admits she cannot stand, sit, or walk for longer than 30 minutes without severe pain increase. Has significant difficulty with cooking or unloading hide washer. Typically uses SPC for community ambulation, and has since ankle fracture, but walks around her home without an assistive device. Prior Treatments and Tests Lumbar MRI: IMPRESSION: 1. Interval Re fracture of L3, with a severe compression now present. There is still some edema present in the vertebral body indicating a degree of subacuity period. 2. Multilevel degenerative change . There is mild canal stenosis at L2-L3. There is moderate left foraminal narrowing at L3-L4. per Napoleon Mercedes M.D. on 11/06 PT-OP-C Subjective Start: 03/13/23 17:50 Freq: Status: Active Protocol: Document 03/20/23 14:30 DCW (Rec: 03/20/23 15:15 DCW [id number]) OP-PT Subjective Patient Comments Patient Comments My back has really been hurting. I was having trouble with the sliding doors in my van, and I had something in the back that I needed, so I had to crawl into the back from the front, and I think I might has messed something up. PT-OP-E Functional Tests Start: 03/13/23 17:50 Freq: Status: Active Protocol: Document 03/13/23 09:50 DCW (Rec: 03/13/23 18:05 DCW [id number]) Functional Tests Five Times Sit to Stand Test Score 30.17 Timed Up and Go (TUG) Score 15.61 /c SPC Comments Three-trial average (16.41, 15.66, 14.77) TUG Impairment Rating 60 to <80% Impaired (Score 16- 17) PT-OP-K Range of Motion Start: 03/13/23 17:50 Freq: Status: Active Protocol: Document 03/13/23 09:50 DCW (Rec: 03/13/23 18:08 DCW [id number]) Lumbar Spine Range of Motion Lumbar Spine Active Degrees Testing Position Standing Flexion 60 Extension 15 ROM Limitations Pain PT-OP-M Strength Start: 03/13/23 17:50 Freq: Status: Active Protocol: Document 03/13/23 09:50 DCW (Rec: 03/13/23 18:08 DCW [id number]) Trunk Strength Trunk Manual Muscle Testing Core Stabilization Pt able to gently contract abdominal muscles and almost immediately fatigues and relaxes after ~1 second Hip Strength Hip Manual Muscle Testing Right Flexion (L2) 4- Good- Abduction 3+ Fair+ Adduction 4 Good External Rotation 4 Good Internal Rotation 4 Good Left Flexion (L2) 4 Good Abduction 3+ Fair+ Adduction 4 Good External Rotation 4 Good Internal Rotation 4 Good Knee Strength Knee Manual Muscle Testing Right Flexion (S2) 4 Good Extension (L3) 4 Good Left Flexion (S2) 4 Good Extension (L3) 4 Good Ankle/Foot Strength Ankle and Foot Manual Muscle Testing Right Dorsiflexion (L4) 4 Good Left Dorsiflexion (L4) 4 Good PT-OP-Q Treatments Start: 03/13/23 17:50 Freq: Status: Active Protocol: Document 03/20/23 14:30 DCW (Rec: 03/20/23 15:15 DCW [id number]) Cardio Equipment Recumbent Elliptical (Biodex) Duration (Minutes) 5 Resistance 4 Seat Position 9 Gym Equipment Shuttle Recovery Unilateral Squats Resistance 37# Shuttle Recovery Platform Stable Bilateral Squats Resistance 75# Shuttle Recovery Platform Stable Therapeutic Exercises Sitting Exercises LAQ Sitting Exercise Name LAQ Side bilateral Resistance 4# Standing Exercises Toe Taps Standing Exercise Name Toe-taps Side bilateral Resistance 4# Equipment Used 6 step Hamstring Curls Standing Exercise Name Hamstring Curls Side bilateral Resistance 4# Hip Extension Standing Exercise Name Hip Extension Side bilateral Resistance Red Rows Standing Exercise Name Rows Side bilateral Resistance Green Shoulder Extension Standing Exercise Name Shoulder Extension Side bilateral Resistance Green Pallof Press Standing Exercise Name Pallof Press Side bilateral Resistance Green Other Exercises Resisted Ambulation Other Exercise Name Resisted Ambulation Side bilateral Resistance Red PT-OP-T Assessment and Plan Start: 03/13/23 17:50 Freq: Status: Active Protocol: Document 03/20/23 14:30 DCW (Rec: 03/20/23 15:15 DCW [id number]) Physical Therapy Assessment Impairments Impairments Activity Tolerance,Balance, Functional Activities, Functional Mobility,Gait,Pain, Posture,ROM,Soft Tissue Mobility,Strength,Tone Goals Two Impairment Pt unable to stand longer than 30 minutes without pain Nursing Home Goal (LTG) Pt to improve core strength to enable her to perform her usual household activities, such as cooking, for at least 60 minutes without increased low back pain. LTG Duration 06/11/23 One Impairment Pt does not have an appropriate home exercise program Short Term Goal (STG) Pt to be independent and compliant with an appropriate HEP STG Duration 04/12/23 Assessment Summary Assessment Pt was really feeling it by end of session, but overall tolerated very well. Pt did not have any instances of stopping for extra break and showed ability to complete every activity. Continue current HEP, will add additional exercises to it nex week. Physical Therapy Plan Frequency and Duration Frequency of Treatment 1-2x/week Plan of Care Start Date 03/13/23 Plan of Care End Date 06/11/23 Therapeutic Interventions Therapeutic Interventions Balance Training,Home Exercise Program,Joint Mobilizations, Manual Therapy,Neuromuscular Re-education,Patient/Caregiver Education,Self-Care/Home Management,Soft Tissue Mobilization,Therapeutic Activities,Therapeutic Exercises Next Visit Focus/Plan Next Note Type Treatment Note Next Visit Plan Core and LE strengthening, balance training
--- NOTE | 2023-04-03 15:31 | PT.OTN ---
Current Diagnoses Pain in other specified joint (04/03/23) Stiffness of other specified joint, not elsewhere classified (04/03/23) Wedge compression fracture of unspecified lumbar vertebra, initial encounter for closed fracture (04/03/23) Wedge compression fracture of unspecified lumbar vertebra, subsequent encounter for fracture with routine healing (04/03/23) Wedge compression fracture of third lumbar vertebra, initial encounter for closed fracture (04/03/23) Wedge compression fracture of third lumbar vertebra, subsequent encounter for fracture with routine healing (04/03/23) Physical Therapy Treatment Note PT-OP-A Visit Information Start: 03/13/23 17:50 Freq: Status: Active Protocol: Document 04/03/23 14:45 DCW (Rec: 04/03/23 15:31 DCW [id number]) Out-Patient Physical Therapy Visit Information Visit Information Visit Type Treatment Note Visit Start Time 14:45 Visit Stop Time 15:30 Total Visit Minutes 45 Visit Number 3 Number of ELEVATOR EXAMINER Visits 0 Evaluation Information Evaluation Date 03/13/23 PT-OP-B Current Condition Start: 03/13/23 17:50 Freq: Status: Active Protocol: Document 03/13/23 09:50 DCW (Rec: 03/13/23 18:05 DCW [id number]) Current Condition History of Current Condition Onset Date 06/13/22 Current Complaints Low back pain, limited standing/activity tolerance, Compression fracture History of Current Condition Pt is an 83 year old female presenting 9 months s/p lumbar compression fracture (L3) caused by fall off her steps. Reports that in 2019, she had broken her ankle, and they had put in a ramp to help her get into/out of her house. In June, pt's spilled paint on the ramp, removed it to clean up, pt forgot it had been moved, and just walked out and stepped off her porch, expecting the ramp to be there. Although she has improved some, pt still has very significant, very limiting pain with nearly all activities. Admits she could barely move for six months following her fall, which has resulted in weakness and poor activity tolerance, in addition to continuing lumbar pain. Admits she cannot stand, sit, or walk for longer than 30 minutes without severe pain increase. Has significant difficulty with cooking or unloading bottle washer machine. Typically uses SPC for community ambulation, and has since ankle fracture, but walks around her home without an assistive device. Prior Treatments and Tests Lumbar MRI: IMPRESSION: 1. Interval Re fracture of L3, with a severe compression now present. There is still some edema present in the vertebral body indicating a degree of subacuity period. 2. Multilevel degenerative change . There is mild canal stenosis at L2-L3. There is moderate left foraminal narrowing at L3-L4. per Napoleon Mercedes M.D. on 11/06 PT-OP-C Subjective Start: 03/13/23 17:50 Freq: Status: Active Protocol: Document 04/03/23 14:45 DCW (Rec: 04/03/23 15:31 DCW [id number]) OP-PT Subjective Patient Comments Patient Comments It just still hurts. In the mornings I do pretty well, but by this point, I've had a full day already. PT-OP-E Functional Tests Start: 03/13/23 17:50 Freq: Status: Active Protocol: Document 03/13/23 09:50 DCW (Rec: 03/13/23 18:05 DCW [id number]) Functional Tests Five Times Sit to Stand Test Score 30.17 Timed Up and Go (TUG) Score 15.61 /c SPC Comments Three-trial average (16.41, 15.66, 14.77) TUG Impairment Rating 60 to <80% Impaired (Score 16- 17) PT-OP-K Range of Motion Start: 03/13/23 17:50 Freq: Status: Active Protocol: Document 03/13/23 09:50 DCW (Rec: 03/13/23 18:08 DCW [id number]) Lumbar Spine Range of Motion Lumbar Spine Active Degrees Testing Position Standing Flexion 60 Extension 15 ROM Limitations Pain PT-OP-M Strength Start: 03/13/23 17:50 Freq: Status: Active Protocol: Document 03/13/23 09:50 DCW (Rec: 03/13/23 18:08 DCW [id number]) Trunk Strength Trunk Manual Muscle Testing Core Stabilization Pt able to gently contract abdominal muscles and almost immediately fatigues and relaxes after ~1 second Hip Strength Hip Manual Muscle Testing Right Flexion (L2) 4- Good- Abduction 3+ Fair+ Adduction 4 Good External Rotation 4 Good Internal Rotation 4 Good Left Flexion (L2) 4 Good Abduction 3+ Fair+ Adduction 4 Good External Rotation 4 Good Internal Rotation 4 Good Knee Strength Knee Manual Muscle Testing Right Flexion (S2) 4 Good Extension (L3) 4 Good Left Flexion (S2) 4 Good Extension (L3) 4 Good Ankle/Foot Strength Ankle and Foot Manual Muscle Testing Right Dorsiflexion (L4) 4 Good Left Dorsiflexion (L4) 4 Good PT-OP-Q Treatments Start: 03/13/23 17:50 Freq: Status: Active Protocol: Document 04/03/23 14:45 DCW (Rec: 04/03/23 15:31 DCW [id number]) Cardio Equipment Recumbent Elliptical (InCytu) Duration (Minutes) 5 Resistance 4 Seat Position 9 Therapeutic Exercises Supine Exercises LTR Supine Exercise Name LTR /c TrA contraction PPT Supine Exercise Name PPT /c TrA contraction Sitting Exercises LAQ Sitting Exercise Name LAQ Side bilateral Resistance 4# Standing Exercises Toe Taps Standing Exercise Name Toe-taps Side bilateral Resistance 4# Equipment Used 6 step Hamstring Curls Standing Exercise Name Hamstring Curls Side bilateral Resistance 4# Hip Extension Standing Exercise Name Hip Extension Side bilateral Resistance Red Rows Standing Exercise Name Rows Side bilateral Resistance Green Shoulder Extension Standing Exercise Name Shoulder Extension Side bilateral Resistance Green Pallof Press Standing Exercise Name Pallof Press Side bilateral Resistance Green Other Exercises Resisted Ambulation Other Exercise Name Resisted Ambulation Side bilateral Resistance Red PT-OP-T Assessment and Plan Start: 03/13/23 17:50 Freq: Status: Active Protocol: Document 04/03/23 14:45 DCW (Rec: 04/03/23 15:31 DCW [id number]) Physical Therapy Assessment Impairments Impairments Activity Tolerance,Balance, Functional Activities, Functional Mobility,Gait,Pain, Posture,ROM,Soft Tissue Mobility,Strength,Tone Goals Two Impairment Pt unable to stand longer than 30 minutes without pain Long-Term Goal (LTG) Pt to improve core strength to enable her to perform her usual household activities, such as cooking, for at least 60 minutes without increased low back pain. LTG Duration 06/11/23 One Impairment Pt does not have an appropriate home exercise program Short Term Goal (STG) Pt to be independent and compliant with an appropriate HEP STG Duration 04/12/23 Assessment Summary Assessment Pt reports by end of session, her ankle was bothering her more than her back. Happy with new additions to HEP today, motivated to perform at home. Physical Therapy Plan Frequency and Duration Frequency of Treatment 1-2x/week Plan of Care Start Date 03/13/23 Plan of Care End Date 06/11/23 Therapeutic Interventions Therapeutic Interventions Balance Training,Home Exercise Program,Joint Mobilizations, Manual Therapy,Neuromuscular Re-education,Patient/Caregiver Education,Self-Care/Home Management,Soft Tissue Mobilization,Therapeutic Activities,Therapeutic Exercises Next Visit Focus/Plan Next Note Type Treatment Note Next Visit Plan Core and LE strengthening, balance training
--- NOTE | 2023-04-10 15:27 | PT.OTN ---
Current Diagnoses Pain in other specified joint (04/10/23) Stiffness of other specified joint, not elsewhere classified (04/10/23) Wedge compression fracture of unspecified lumbar vertebra, initial encounter for closed fracture (04/10/23) Wedge compression fracture of unspecified lumbar vertebra, subsequent encounter for fracture with routine healing (04/10/23) Wedge compression fracture of third lumbar vertebra, initial encounter for closed fracture (04/10/23) Wedge compression fracture of third lumbar vertebra, subsequent encounter for fracture with routine healing (04/10/23) Physical Therapy Treatment Note PT-OP-A Visit Information Start: 03/13/23 17:50 Freq: Status: Active Protocol: Document 04/10/23 14:45 DCW (Rec: 04/10/23 15:27 DCW [id number]) Out-Patient Physical Therapy Visit Information Visit Information Visit Type Treatment Note Visit Start Time 14:45 Visit Stop Time 15:30 Total Visit Minutes 45 Visit Number 4 Number of END LATHE OPERATOR Visits 0 Evaluation Information Evaluation Date 03/13/23 PT-OP-B Current Condition Start: 03/13/23 17:50 Freq: Status: Active Protocol: Document 03/13/23 09:50 DCW (Rec: 03/13/23 18:05 DCW [id number]) Current Condition History of Current Condition Onset Date 06/13/22 Current Complaints Low back pain, limited standing/activity tolerance, Compression fracture History of Current Condition Pt is an 83 year old female presenting 9 months s/p lumbar compression fracture (L3) caused by fall off her steps. Reports that in 2019, she had broken her ankle, and they had put in a ramp to help her get into/out of her house. In June, pt's spilled paint on the ramp, removed it to clean up, pt forgot it had been moved, and just walked out and stepped off her porch, expecting the ramp to be there. Although she has improved some, pt still has very significant, very limiting pain with nearly all activities. Admits she could barely move for six months following her fall, which has resulted in weakness and poor activity tolerance, in addition to continuing lumbar pain. Admits she cannot stand, sit, or walk for longer than 30 minutes without severe pain increase. 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 Typically uses [facility] for community ambulation, and has since ankle fracture, but walks around her home without an assistive device. Prior Treatments and Tests Lumbar MRI: IMPRESSION: 1. Interval Re fracture of L3, with a severe compression now present. There is still some edema present in the vertebral body indicating a degree of subacuity period. 2. Multilevel degenerative change . There is mild canal stenosis at L2-L3. There is moderate left foraminal narrowing at L3-L4. per Napoleon Mercedes M.D. on 11/06 PT-OP-C Subjective Start: 03/13/23 17:50 Freq: Status: Active Protocol: Document 04/10/23 14:45 DCW (Rec: 04/10/23 15:27 DCW [id number]) OP-PT Subjective Patient Comments Patient Comments Pt notes that her ankle was severely painful for two days following her last visit, thinks it might have been due to the resisted side-stepping, and therefore has not been doing it at home. PT-OP-E Functional Tests Start: 03/13/23 17:50 Freq: Status: Active Protocol: Document 03/13/23 09:50 DCW (Rec: 03/13/23 18:05 DCW [id number]) Functional Tests Five Times Sit to Stand Test Score 30.17 Timed Up and Go (TUG) Score 15.61 /c SPC Comments Three-trial average (16.41, 15.66, 14.77) TUG Impairment Rating 60 to <80% Impaired (Score 16- 17) PT-OP-K Range of Motion Start: 03/13/23 17:50 Freq: Status: Active Protocol: Document 03/13/23 09:50 DCW (Rec: 03/13/23 18:08 DCW [id number]) Lumbar Spine Range of Motion Lumbar Spine Active Degrees Testing Position Standing Flexion 60 Extension 15 ROM Limitations Pain PT-OP-M Strength Start: 03/13/23 17:50 Freq: Status: Active Protocol: Document 03/13/23 09:50 DCW (Rec: 03/13/23 18:08 DCW [id number]) Trunk Strength Trunk Manual Muscle Testing Core Stabilization Pt able to gently contract abdominal muscles and almost immediately fatigues and relaxes after ~1 second Hip Strength Hip Manual Muscle Testing Right Flexion (L2) 4- Good- Abduction 3+ Fair+ Adduction 4 Good External Rotation 4 Good Internal Rotation 4 Good Left Flexion (L2) 4 Good Abduction 3+ Fair+ Adduction 4 Good External Rotation 4 Good Internal Rotation 4 Good Knee Strength Knee Manual Muscle Testing Right Flexion (S2) 4 Good Extension (L3) 4 Good Left Flexion (S2) 4 Good Extension (L3) 4 Good Ankle/Foot Strength Ankle and Foot Manual Muscle Testing Right Dorsiflexion (L4) 4 Good Left Dorsiflexion (L4) 4 Good PT-OP-Q Treatments Start: 03/13/23 17:50 Freq: Status: Active Protocol: Document 04/10/23 14:45 DCW (Rec: 04/10/23 15:27 DCW [id number]) Cardio Equipment Recumbent Elliptical (Biodex) Duration (Minutes) 5 Resistance 4 Seat Position 8 Gym Equipment Shuttle Recovery Unilateral Squats Resistance 37# Shuttle Recovery Platform Stable Reps/Time x15 each Bilateral Squats Resistance 75# Shuttle Recovery Platform Stable Reps/Time x15 Therapeutic Ball LTR Exercise Details LTR Ball Size/Color Blue - 45 cm Body Position Supine Therapeutic Exercises Supine Exercises SLR Supine Exercise Name PPT /c SLR Side bilateral Comments 5 hold Marching Supine Exercise Name PPT /c Marching Side bilateral Sidelying Exercises Clamshell Sidelying Exercise Name Clamshell Side bilateral Standing Exercises Rows Standing Exercise Name Rows Side bilateral Resistance Green Shoulder Extension Standing Exercise Name Shoulder Extension Side bilateral Resistance Green Pallof Press Standing Exercise Name Pallof Press Side bilateral Resistance Green PT-OP-T Assessment and Plan Start: 03/13/23 17:50 Freq: Status: Active Protocol: Document 04/10/23 14:45 DCW (Rec: 04/10/23 15:27 DCW [id number]) Physical Therapy Assessment Impairments Impairments Activity Tolerance,Balance, Functional Activities, Functional Mobility,Gait,Pain, Posture,ROM,Soft Tissue Mobility,Strength,Tone Goals Two Impairment Pt unable to stand longer than 30 minutes without pain Senior Financial Reporting Accountant Goal (LTG) Pt to improve core strength to enable her to perform her usual household activities, such as cooking, for at least 60 minutes without increased low back pain. LTG Duration 06/11/23 One Impairment Pt does not have an appropriate home exercise program Short Term Goal (STG) Pt to be independent and compliant with an appropriate HEP STG Duration 04/12/23 Assessment Summary Assessment Performed fewer dynamic standing exercises today in an effort to limit ankle pain, pt felt much better following today's session. Physical Therapy Plan Frequency and Duration Frequency of Treatment 1-2x/week Plan of Care Start Date 03/13/23 Plan of Care End Date 06/11/23 Therapeutic Interventions Therapeutic Interventions Balance Training,Home Exercise Program,Joint Mobilizations, Manual Therapy,Neuromuscular Re-education,Patient/Caregiver Education,Self-Care/Home Management,Soft Tissue Mobilization,Therapeutic Activities,Therapeutic Exercises Next Visit Focus/Plan Next Note Type Treatment Note Next Visit Plan Core and LE strengthening, balance training
--- NOTE | 2023-04-17 14:52 | PT-OP ANOTE ---
Pt arrived as scheduled for her 04/17/23 visit, however was very noticeably not feeling well, and therapist determined it would be best if she returned home today and canceled her appointment.
--- NOTE | 2023-04-24 13:26 | PT.OTN ---
Current Diagnoses Pain in other specified joint (04/24/23) Stiffness of other specified joint, not elsewhere classified (04/24/23) Wedge compression fracture of unspecified lumbar vertebra, initial encounter for closed fracture (04/24/23) Wedge compression fracture of unspecified lumbar vertebra, subsequent encounter for fracture with routine healing (04/24/23) Wedge compression fracture of third lumbar vertebra, initial encounter for closed fracture (04/24/23) Wedge compression fracture of third lumbar vertebra, subsequent encounter for fracture with routine healing (04/24/23) Physical Therapy Treatment Note PT-OP-A Visit Information Start: 03/13/23 17:50 Freq: Status: Active Protocol: Document 04/24/23 12:45 DCW (Rec: 04/24/23 13:26 DCW [id number]) Out-Patient Physical Therapy Visit Information Visit Information Visit Type Treatment Note Visit Start Time 12:45 Visit Stop Time 13:30 Total Visit Minutes 45 Visit Number 5 Number of DEPLOYMENT SPECIALIST Visits 0 Evaluation Information Evaluation Date 03/13/23 PT-OP-B Current Condition Start: 03/13/23 17:50 Freq: Status: Active Protocol: Document 03/13/23 09:50 DCW (Rec: 03/13/23 18:05 DCW [id number]) Current Condition History of Current Condition Onset Date 06/13/22 Current Complaints Low back pain, limited standing/activity tolerance, Compression fracture History of Current Condition Pt is an 83 year old female presenting 9 months s/p lumbar compression fracture (L3) caused by fall off her steps. Reports that in 2019, she had broken her ankle, and they had put in a ramp to help her get into/out of her house. In June, pt's spilled paint on the ramp, removed it to clean up, pt forgot it had been moved, and just walked out and stepped off her porch, expecting the ramp to be there. Although she has improved some, pt still has very significant, very limiting pain with nearly all activities. Admits she could barely move for six months following her fall, which has resulted in weakness and poor activity tolerance, in addition to continuing lumbar pain. Admits she cannot stand, sit, or walk for longer than 30 minutes without severe pain increase. 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 Typically uses [facility] for community ambulation, and has since ankle fracture, but walks around her home without an assistive device. Prior Treatments and Tests Lumbar MRI: IMPRESSION: 1. Interval Re fracture of L3, with a severe compression now present. There is still some edema present in the vertebral body indicating a degree of subacuity period. 2. Multilevel degenerative change . There is mild canal stenosis at L2-L3. There is moderate left foraminal narrowing at L3-L4. per Napoleon Mercedes M.D. on 11/06 PT-OP-C Subjective Start: 03/13/23 17:50 Freq: Status: Active Protocol: Document 04/24/23 12:45 DCW (Rec: 04/24/23 13:26 DCW [id number]) OP-PT Subjective Patient Comments Patient Comments I've already vacuumed this morning, so I'm a little out of energy already. PT-OP-E Functional Tests Start: 03/13/23 17:50 Freq: Status: Active Protocol: Document 03/13/23 09:50 DCW (Rec: 03/13/23 18:05 DCW [id number]) Functional Tests Five Times Sit to Stand Test Score 30.17 Timed Up and Go (TUG) Score 15.61 /c [facility] Comments Three-trial average (16.41, 15.66, 14.77) TUG Impairment Rating 60 to <80% Impaired (Score 16- 17) PT-OP-K Range of Motion Start: 03/13/23 17:50 Freq: Status: Active Protocol: Document 03/13/23 09:50 DCW (Rec: 03/13/23 18:08 DCW [id number]) Lumbar Spine Range of Motion Lumbar Spine Active Degrees Testing Position Standing Flexion 60 Extension 15 ROM Limitations Pain PT-OP-M Strength Start: 03/13/23 17:50 Freq: Status: Active Protocol: Document 03/13/23 09:50 DCW (Rec: 03/13/23 18:08 DCW [id number]) Trunk Strength Trunk Manual Muscle Testing Core Stabilization Pt able to gently contract abdominal muscles and almost immediately fatigues and relaxes after ~1 second Hip Strength Hip Manual Muscle Testing Right Flexion (L2) 4- Good- Abduction 3+ Fair+ Adduction 4 Good External Rotation 4 Good Internal Rotation 4 Good Left Flexion (L2) 4 Good Abduction 3+ Fair+ Adduction 4 Good External Rotation 4 Good Internal Rotation 4 Good Knee Strength Knee Manual Muscle Testing Right Flexion (S2) 4 Good Extension (L3) 4 Good Left Flexion (S2) 4 Good Extension (L3) 4 Good Ankle/Foot Strength Ankle and Foot Manual Muscle Testing Right Dorsiflexion (L4) 4 Good Left Dorsiflexion (L4) 4 Good PT-OP-Q Treatments Start: 03/13/23 17:50 Freq: Status: Active Protocol: Document 04/24/23 12:45 DCW (Rec: 04/24/23 13:26 DCW [id number]) Cardio Equipment Recumbent Elliptical (Biodex) Duration (Minutes) 5 Resistance 5 Seat Position 8 Gym Equipment Shuttle Recovery Unilateral Squats Resistance 37# Shuttle Recovery Platform Stable Reps/Time x15 each Bilateral Squats Resistance 75# Shuttle Recovery Platform Stable Reps/Time x20 Therapeutic Ball Trunk Flexion Exercise Details Seated ball walk out - Forward , lateral Ball Size/Color Red - 75 m Body Position Sitting Bridging Exercise Details Bridging - feet on ball Ball Size/Color Blue - 45 cm Body Position Supine LTR Exercise Details LTR Ball Size/Color Blue - 45 cm Body Position Supine Therapeutic Exercises Sidelying Exercises Hip Abduction Sidelying Exercise Name Hip Abduction Side bilateral Reverse Clamshell Sidelying Exercise Name Reverse Clamshell Side bilateral Clamshell Sidelying Exercise Name Clamshell Side bilateral Standing Exercises Rows Standing Exercise Name Rows Side bilateral Resistance Green Shoulder Extension Standing Exercise Name Shoulder Extension Side bilateral Resistance Green Pallof Press Standing Exercise Name Pallof Press Side bilateral Resistance Green PT-OP-T Assessment and Plan Start: 03/13/23 17:50 Freq: Status: Active Protocol: Document 04/24/23 12:45 DCW (Rec: 04/24/23 13:26 DCW [id number]) Physical Therapy Assessment Impairments Impairments Activity Tolerance,Balance, Functional Activities, Functional Mobility,Gait,Pain, Posture,ROM,Soft Tissue Mobility,Strength,Tone Goals Two Impairment Pt unable to stand longer than 30 minutes without pain Tire Servicer Goal (LTG) Pt to improve core strength to enable her to perform her usual household activities, such as cooking, for at least 60 minutes without increased low back pain. LTG Duration 06/11/23 One Impairment Pt does not have an appropriate home exercise program Short Term Goal (STG) Pt to be independent and compliant with an appropriate HEP STG Duration 04/12/23 Assessment Summary Assessment Still avoiding most of dynamic balance due to ongoing ankle pain, but otherwise doing very well with [employer] Physical Therapy Plan Frequency and Duration Frequency of Treatment 1-2x/week Plan of Care Start Date 03/13/23 Plan of Care End Date 06/11/23 Therapeutic Interventions Therapeutic Interventions Balance Training,Home Exercise Program,Joint Mobilizations, Manual Therapy,Neuromuscular Re-education,Patient/Caregiver Education,Self-Care/Home Management,Soft Tissue Mobilization,Therapeutic Activities,Therapeutic Exercises Next Visit Focus/Plan Next Note Type Treatment Note Next Visit Plan Core and LE strengthening, balance training
--- NOTE | 2023-05-01 15:26 | PT.OTN ---
Current Diagnoses Pain in other specified joint (05/01/23) Stiffness of other specified joint, not elsewhere classified (05/01/23) Wedge compression fracture of unspecified lumbar vertebra, initial encounter for closed fracture (05/01/23) Wedge compression fracture of unspecified lumbar vertebra, subsequent encounter for fracture with routine healing (05/01/23) Wedge compression fracture of third lumbar vertebra, initial encounter for closed fracture (05/01/23) Wedge compression fracture of third lumbar vertebra, subsequent encounter for fracture with routine healing (05/01/23) Physical Therapy Treatment Note PT-OP-A Visit Information Start: 03/13/23 17:50 Freq: Status: Active Protocol: Document 05/01/23 14:45 DCW (Rec: 05/01/23 15:26 DCW [id number]) Out-Patient Physical Therapy Visit Information Visit Information Visit Type Treatment Note Visit Start Time 14:45 Visit Stop Time 15:30 Total Visit Minutes 45 Visit Number 6 Number of SHELTER CASE MANAGER Visits 0 Evaluation Information Evaluation Date 03/13/23 PT-OP-B Current Condition Start: 03/13/23 17:50 Freq: Status: Active Protocol: Document 03/13/23 09:50 DCW (Rec: 03/13/23 18:05 DCW [id number]) Current Condition History of Current Condition Onset Date 06/13/22 Current Complaints Low back pain, limited standing/activity tolerance, Compression fracture History of Current Condition Pt is an 83 year old female presenting 9 months s/p lumbar compression fracture (L3) caused by fall off her steps. Reports that in 2019, she had broken her ankle, and they had put in a ramp to help her get into/out of her house. In June, pt's spilled paint on the ramp, removed it to clean up, pt forgot it had been moved, and just walked out and stepped off her porch, expecting the ramp to be there. Although she has improved some, pt still has very significant, very limiting pain with nearly all activities. Admits she could barely move for six months following her fall, which has resulted in weakness and poor activity tolerance, in addition to continuing lumbar pain. Admits she cannot stand, sit, or walk for longer than 30 minutes without severe pain increase. 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 Typically uses [facility] for community ambulation, and has since ankle fracture, but walks around her home without an assistive device. Prior Treatments and Tests Lumbar MRI: IMPRESSION: 1. Interval Re fracture of L3, with a severe compression now present. There is still some edema present in the vertebral body indicating a degree of subacuity period. 2. Multilevel degenerative change . There is mild canal stenosis at L2-L3. There is moderate left foraminal narrowing at L3-L4. per Napoleon Mercedes M.D. on 11/06 PT-OP-C Subjective Start: 03/13/23 17:50 Freq: Status: Active Protocol: Document 05/01/23 14:45 DCW (Rec: 05/01/23 15:26 DCW [id number]) OP-PT Subjective Patient Comments Patient Comments I think I'm doing a whole lot better. 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 PT-OP-E Functional Tests Start: 03/13/23 17:50 Freq: Status: Active Protocol: Document 03/13/23 09:50 DCW (Rec: 03/13/23 18:05 DCW [id number]) Functional Tests Five Times Sit to Stand Test Score 30.17 Timed Up and Go (TUG) Score 15.61 /c S[facility] Comments Three-trial average (16.41, 15.66, 14.77) TUG Impairment Rating 60 to <80% Impaired (Score 16- 17) PT-OP-K Range of Motion Start: 03/13/23 17:50 Freq: Status: Active Protocol: Document 03/13/23 09:50 DCW (Rec: 03/13/23 18:08 DCW [id number]) Lumbar Spine Range of Motion Lumbar Spine Active Degrees Testing Position Standing Flexion 60 Extension 15 ROM Limitations Pain PT-OP-M Strength Start: 03/13/23 17:50 Freq: Status: Active Protocol: Document 03/13/23 09:50 DCW (Rec: 03/13/23 18:08 DCW [id number]) Trunk Strength Trunk Manual Muscle Testing Core Stabilization Pt able to gently contract abdominal muscles and almost immediately fatigues and relaxes after ~1 second Hip Strength Hip Manual Muscle Testing Right Flexion (L2) 4- Good- Abduction 3+ Fair+ Adduction 4 Good External Rotation 4 Good Internal Rotation 4 Good Left Flexion (L2) 4 Good Abduction 3+ Fair+ Adduction 4 Good External Rotation 4 Good Internal Rotation 4 Good Knee Strength Knee Manual Muscle Testing Right Flexion (S2) 4 Good Extension (L3) 4 Good Left Flexion (S2) 4 Good Extension (L3) 4 Good Ankle/Foot Strength Ankle and Foot Manual Muscle Testing Right Dorsiflexion (L4) 4 Good Left Dorsiflexion (L4) 4 Good PT-OP-Q Treatments Start: 03/13/23 17:50 Freq: Status: Active Protocol: Document 05/01/23 14:45 DCW (Rec: 05/01/23 15:26 DCW [id number]) Cardio Equipment Recumbent Elliptical (Biodex) Duration (Minutes) 6 Resistance 5 Seat Position 8 Gym Equipment Shuttle Recovery Bilateral Heel Raises Resistance 37# Reps/Time x10 Unilateral Squats Resistance 37# Shuttle Recovery Platform Stable Reps/Time x15 each Bilateral Squats Resistance 75# Shuttle Recovery Platform Stable Reps/Time x20 Therapeutic Ball Trunk Flexion Exercise Details Seated ball walk out - Forward , lateral Ball Size/Color Red - 75 m Body Position Sitting Bridging Exercise Details Bridging - feet on ball Ball Size/Color Blue - 45 cm Body Position Supine LTR Exercise Details LTR Ball Size/Color Blue - 45 cm Body Position Supine Therapeutic Exercises Sitting Exercises Hip Abduction Sitting Exercise Name Hip Abduction Side bilateral Resistance [place] LAQ Sitting Exercise Name LAQ Side bilateral Resistance 5# Standing Exercises Toe Taps Standing Exercise Name Toe-taps Side bilateral Resistance 5# Equipment Used 6 step Hamstring Curls Standing Exercise Name Hamstring Curls Side bilateral Resistance 5# Rows Standing Exercise Name Rows Side bilateral Resistance Green Shoulder Extension Standing Exercise Name Shoulder Extension Side bilateral Resistance Green Pallof Press Standing Exercise Name Pallof Press Side bilateral Resistance Green PT-OP-T Assessment and Plan Start: 03/13/23 17:50 Freq: Status: Active Protocol: Document 05/01/23 14:45 DCW (Rec: 05/01/23 15:26 DCW [id number]) Physical Therapy Assessment Impairments Impairments Activity Tolerance,Balance, Functional Activities, Functional Mobility,Gait,Pain, Posture,ROM,Soft Tissue Mobility,Strength,Tone Goals Two Impairment Pt unable to stand longer than 30 minutes without pain Distillery Worker Goal (LTG) Pt to improve core strength to enable her to perform her usual household activities, such as cooking, for at least 60 minutes without increased low back pain. 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 Physical Therapy Plan Frequency and Duration Frequency of Treatment 1-2x/week Plan of Care Start Date 03/13/23 Plan of Care End Date 06/11/23 Therapeutic Interventions Therapeutic Interventions Balance Training,Home Exercise Program,Joint Mobilizations, Manual Therapy,Neuromuscular Re-education,Patient/Caregiver Education,Self-Care/Home Management,Soft Tissue Mobilization,Therapeutic Activities,Therapeutic Exercises Next Visit Focus/Plan Next Note Type Discharge Summary Next Visit Plan Core and LE strengthening, balance training
--- NOTE | 2023-05-08 15:29 | PT.OTN ---
Current Diagnoses Pain in other specified joint (05/08/23) Stiffness of other specified joint, not elsewhere classified (05/08/23) Wedge compression fracture of unspecified lumbar vertebra, initial encounter for closed fracture (05/08/23) Wedge compression fracture of unspecified lumbar vertebra, subsequent encounter for fracture with routine healing (05/08/23) Wedge compression fracture of third lumbar vertebra, initial encounter for closed fracture (05/08/23) Wedge compression fracture of third lumbar vertebra, subsequent encounter for fracture with routine healing (05/08/23) Physical Therapy Treatment Note PT-OP-A Visit Information Start: 03/13/23 17:50 Freq: Status: Active Protocol: Document 05/08/23 14:45 DCW (Rec: 05/08/23 15:26 DCW [id number]) Out-Patient Physical Therapy Visit Information Visit Information Visit Type Discharge Summary Visit Start Time 14:45 Visit Stop Time 15:15 Total Visit Minutes 30 Visit Number 7 Number of RADIOLOGY RECEPTIONIST Visits 0 Evaluation Information Evaluation Date 03/13/23 PT-OP-B Current Condition Start: 03/13/23 17:50 Freq: Status: Active Protocol: Document 03/13/23 09:50 DCW (Rec: 03/13/23 18:05 DCW [id number]) Current Condition History of Current Condition Onset Date 06/13/22 Current Complaints Low back pain, limited standing/activity tolerance, Compression fracture History of Current Condition Pt is an 83 year old female presenting 9 months s/p lumbar compression fracture (L3) caused by fall off her steps. Reports that in 2019, she had broken her ankle, and they had put in a ramp to help her get into/out of her house. In June, pt's spilled paint on the ramp, removed it to clean up, pt forgot it had been moved, and just walked out and stepped off her porch, expecting the ramp to be there. Although she has improved some, pt still has very significant, very limiting pain with nearly all activities. Admits she could barely move for six months following her fall, which has resulted in weakness and poor activity tolerance, in addition to continuing lumbar pain. Admits she cannot stand, sit, or walk for longer than 30 minutes without severe pain increase. 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 Typically uses SPC for community ambulation, and has since ankle fracture, but walks around her home without an assistive device. Prior Treatments and Tests Lumbar MRI: IMPRESSION: 1. Interval Re fracture of L3, with a severe compression now present. There is still some edema present in the vertebral body indicating a degree of subacuity period. 2. Multilevel degenerative change . There is mild canal stenosis at L2-L3. There is moderate left foraminal narrowing at L3-L4. per Napoleon Mercedes M.D. on 11/06 PT-OP-C Subjective Start: 03/13/23 17:50 Freq: Status: Active Protocol: Document 05/08/23 14:45 DCW (Rec: 05/08/23 15:26 DCW [id number]) OP-PT Subjective Patient Comments Patient Comments The last two days I've been hurting, and I haven't done anything unusual. PT-OP-E Functional Tests Start: 03/13/23 17:50 Freq: Status: Active Protocol: Document 05/08/23 14:45 DCW (Rec: 05/08/23 15:29 DCW [id number]) Functional Tests Five Times Sit to Stand Test Score 14.99 Timed Up and Go (TUG) Score 11.52 /c SPC Comments Three-trial average (11.81, 11.58, 11.16) TUG Impairment Rating 1 to <20% Impaired (Score 11) PT-OP-K Range of Motion Start: 03/13/23 17:50 Freq: Status: Active Protocol: Document 03/13/23 09:50 DCW (Rec: 03/13/23 18:08 DCW [id number]) Lumbar Spine Range of Motion Lumbar Spine Active Degrees Testing Position Standing Flexion 60 Extension 15 ROM Limitations Pain PT-OP-M Strength Start: 03/13/23 17:50 Freq: Status: Active Protocol: Document 05/08/23 14:45 DCW (Rec: 05/08/23 15:29 DCW [id number]) Hip Strength Hip Manual Muscle Testing Right Flexion (L2) 4+ Good+ Abduction 4 Good Adduction 4+ Good+ Left Flexion (L2) 4+ Good+ Abduction 4 Good Adduction 4+ Good+ Knee Strength Knee Manual Muscle Testing Right Flexion (S2) 4+ Good+ Extension (L3) 4+ Good+ Left Flexion (S2) 4+ Good+ Extension (L3) 4+ Good+ PT-OP-Q Treatments Start: 03/13/23 17:50 Freq: Status: Active Protocol: Document 05/08/23 14:45 DCW (Rec: 05/08/23 15:26 DCW [id number]) Cardio Equipment Recumbent Elliptical (Biodex) Duration (Minutes) 6 Resistance 5 Seat Position 8 PT-OP-T Assessment and Plan Start: 03/13/23 17:50 Freq: Status: Active Protocol: Document 05/08/23 14:45 DCW (Rec: 05/08/23 15:26 DCW [id number]) Physical Therapy Assessment Impairments Impairments Activity Tolerance,Balance, Functional Activities, Functional Mobility,Gait,Pain, Posture,ROM,Soft Tissue Mobility,Strength,Tone Goals Two Impairment Pt unable to stand longer than 30 minutes without pain 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 LTG Duration 06/11/23 - improving One Impairment Pt does not have an appropriate home exercise program Short Term Goal (STG) Pt to be independent and compliant with an appropriate HEP STG Duration Met Progress Towards Goals Progress Towards Goals Progressing Toward Goals Assessment Summary Assessment Pt is showing very good improvement, has cut her 5xStS time in half, decreased average TUG score by more than four seconds, and is showing good improvement with overall LE MMT. Pt demonstrated understanding of ongoing HEP, agreeable to discharge at this time, understands she will need a new referral in order to return if she begins to notice ffunctional decline. Physical Therapy Plan Frequency and Duration Frequency of Treatment 1-2x/week Plan of Care Start Date 03/13/23 Plan of Care End Date 06/11/23 Therapeutic Interventions Therapeutic Interventions Balance Training,Home Exercise Program,Joint Mobilizations, Manual Therapy,Neuromuscular Re-education,Patient/Caregiver Education,Self-Care/Home Management,Soft Tissue Mobilization,Therapeutic Activities,Therapeutic Exercises Discharge Physical Therapy Discharge Comments Discharge to independent HEP Next Visit Focus/Plan Next Note Type Discharge Summary
== END 2023-05-09 14:46 | disposition home or self-care (01) ==
LOC: PHYS 14:45
PROVIDERS: Family Provider Family Medicine; PCP Family Medicine; Referring Provider Physician Assistant; Visit Provider Physician Assistant
DX: S32.000D Wedge compression fracture of unspecified lumbar vertebra, subsequent encounter for fracture with routine healing (principal); S32.030D Wedge compression fracture of third lumbar vertebra, subsequent encounter for fracture with routine healing; M25.69 Stiffness of other specified joint, not elsewhere classified; M25.59 Pain in other specified joint
CPT/HCPCS: 97110; 97112; 97162

== ENCOUNTER → 2023-09-26 12:01 | Outpatient (CLI) | payer MEDICARE, SELFPAY ==
[2022-10-29 15:37] VITALS: BMI 31.8
== END ==
PROVIDERS: Family Provider Family Medicine; PCP Family Medicine; Visit Provider Nurse Practitioner Family
DX: R35.0 Frequency of micturition (principal); R30.0 Dysuria
CPT/HCPCS: 87086; 87210

== ENCOUNTER 2023-10-16 13:11 | Emergency (ER) | payer MEDICARE, SELFPAY ==
[2022-10-29 15:37] VITALS: BMI 31.8
[2023-10-16 13:15] VITALS: BP 190/77; PULSE 66; RESP 20; TEMP 36.4; O2SAT 98
--- NOTE | 2023-10-16 13:23 | DI.RAD.S_ITS ---
PROCEDURE: XR LUMBAR SPINE 2-3V INDICATIONS: LBP TECHNIQUE: 3 views of the lumbar spine were acquired. COMPARISON: [facility] [place], [place], XR LUMBAR SPINE 2 OR 3 VIEWS, 09/11/2022, 14:06. FINDINGS: Bones: 5 [id number]-[id number] vertebrae are present. Straightening of the normal lumbar lordosis. Compression deformity of the L3 vertebral body with approximately 75% height loss centrally is stable compared to prior. Diffusely decreased osseous mineralization. There is multilevel facet arthropathy, worse at L4-5 and L5-S1. Mild multilevel disc height loss with degenerative endplate changes and spurring is present. No new vertebral body compression fractures. No suspicious bony lesions. Soft tissues: Overlying bowel gas pattern is normal. No suspicious soft tissue calcifications. IMPRESSION: Stable appearance of L3 vertebral body compression deformity. No new vertebral body compression deformities. Multilevel degenerative changes of the lumbar spine. Dictated by: Leonel Corado M.D. on 10/16/2023 at 14:10 Approved by: Leonel Corado M.D. on 10/16/2023 at 14:12
[2023-10-16] MEDS: IBUPROFEN 400 MG TABLET PO (14:01)
[2023-10-16 14:26] VITALS: BP 184/79; PULSE 56; RESP 18; O2SAT 99
--- NOTE | 2023-10-16 16:33 | ED_ITS ---
HPI - Back Pain/Injury <Liz Garza PA-C - Last Filed: 10/16/23 18:12> General Chief Complaint: Back Pain/Injury Stated Complaint: dr sent for x ray/HX broken back Time Seen by Provider: 10/16/23 13:20 Source: patient History of Present Illness HPI Narrative: Patient is an 83-year-old female with history of hypertension and GERD, who presents with a slowly progressing complaint of low back pain. She feels it started about 2 weeks ago without an inciting event. She describes it as dull and aching and occasionally sharp when she twists or sometimes when she goes from seated to standing. The pain will cease after a few moments. It is better at rest. She denies radiation of pain into the legs or burning numbness or tingling in her lower extremities. She has no bowel or bladder issues. No chest pain shortness of breath diaphoresis, fever. She has a history in 2000 of a lumbar vertebral compression fracture from which she recovered well. She is generally able to move quite easily. 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 Lumbar MRI on 11/06/2022 showed 1. Interval Re fracture of L3, with a severe compression now present. There is still some edema present in the vertebral body indicating a degree of subacuity period 2. Multilevel degenerative change. There is mild canal stenosis at L2-L3. There is moderate left foraminal narrowing at L3-L4. Related Data Home Medications Medication Instructions Recorded Confirmed ASPIRIN (#ASPIR 81) 81 mg PO Q DAY ##0 06/11/12 09/26/23 omeprazole magnesium 20 mg 20 mg PO DAILY 04/30/19 09/26/23 tablet,delayed release (Prilosec OTC) melatonin 5 mg capsule 20 mg PO BEDTIME 05/04/20 09/26/23 Previous Rx's Medication Instructions Recorded propranolol 120 mg 120 mg PO DAILY #90 caps 08/02/20 capsule,extended release 24 hr ondansetron 4 mg disintegrating 4 mg PO Q8H PRN nausea and 11/29/20 tablet vomiting #7 tabs Disabled Parking Permit See Rx Instructions .Route 07/09/22 .COMPLEX #1 unit hydrocodone 5 mg-acetaminophen 325 1 - 2 tab PO Q6H PRN pain #30 tabs 11/01/22 mg tablet metoprolol succinate 100 mg See Rx Instructions .Route 07/02/23 tablet,extended release 24 hr .COMPLEX #90 tabs furosemide 20 mg tablet 20 mg PO DAILY #90 tabs 08/12/23 lisinopril 40 mg tablet See Rx Instructions .Route 08/12/23 .COMPLEX #90 tabs trazodone 50 mg tablet See Rx Instructions .Route 08/26/23 .COMPLEX #30 tabs mirtazapine 7.5 mg tablet 7.5 mg PO BEDTIME #30 tabs 09/03/23 Allergies Allergy/AdvReac Type Severity Reaction Status Date / Time No Known Drug Allergies Allergy Verified 09/26/23 12:54 Review of Systems <Liz Garza PA-C - Last Filed: 10/16/23 18:12> Review of Systems Narrative: GENERAL: Denies chills, fatigue, malaise, fever, sweats. HEENT: Denies sinus pain, ear pain, sore throat, difficulty swallowing, dizziness. RESPIRATORY: Denies dyspnea, cough, wheezing, hemoptysis, sputum. CARDIOVASCULAR: Denies chest pain, palpitations, orthopnea, edema, GASTROINTESTINAL: Denies nausea, vomiting, abdominal pain, diarrhea, constipation, melena. : Denies dysuria, frequency, incontinence, hematuria, urinary retention. MUSCULOSKELETAL: see HPI SKIN: Denies rash, skin lesions, or other NEUROLOGIC: Denies weakness, headache, numbness, change in speech, confusion, seizures, incoordination. PSYCHIATRIC: No concerning psychosocial issues. 12 point review of systems is negative except for those stated above Patient History <Liz Garza PA-C - Last Filed: 10/16/23 18:12> Medical History Obesity Hypertension Surgical History Status post appendectomy Family History Brother Heart disease Father Heart disease Social History marital status: number of children: 2 household members: spouse lives independently: Yes caregiver/support person: No housing: house Smoking Status: Never smoker second hand exposure: No alcohol intake: current substance use type: does not use Smoking Status: Never smoker alcohol intake frequency: a few times a month Substance Use Type: does not use Exam <Liz Garza PA-C - Last Filed: 10/16/23 18:12> Narrative Exam Narrative: Well-nourished female sitting in a wheelchair, no acute distress. Was able to rise from the wheelchair on her own. Back with no obvious deformities, no thoracic or lumbar bony tenderness to palpation. She is point tender over the paraspinal muscles on the left side around the level of L3 L4. Her strength is equal and intact in the lower extremities and she is intact to light touch. Skin is warm and dry pedal pulses are 1+ bilaterally. Lungs are clear auscultation bilaterally. Heart regular rate and rhythm. Abdomen nontender nondistended. Extremities without edema. Initial Vital Signs Initial Vital Signs: Vital Signs Temperature 97.5 F L 10/16/23 13:15 Pulse Rate 66 10/16/23 13:15 Respiratory Rate 20 10/16/23 13:15 Blood Pressure 190/77 H 10/16/23 13:15 Pulse Oximetry 98 10/16/23 13:15 Oxygen Delivery Method Room Air 10/16/23 13:15 <Alistair Bird DO - Last Filed: 10/16/23 18:17> Initial Vital Signs Initial Vital Signs: Vital Signs Temperature 97.5 F L 10/16/23 13:15 Pulse Rate 66 10/16/23 13:15 Respiratory Rate 20 10/16/23 13:15 Blood Pressure 190/77 H 10/16/23 13:15 Pulse Oximetry 98 10/16/23 13:15 Oxygen Delivery Method Room Air 10/16/23 13:15 Course <Liz Garza PA-C - Last Filed: 10/16/23 18:12> Orders Ordered: ED Orders 10/16/23 13:23 XR lumbar spine 2-3V Stat Discontinued Medications Ibuprofen (Ibuprofen 400 Mg Tablet) 400 mg PO NOW ONE Stop: 10/16/23 13:59 Last Admin: 10/16/23 14:01 Dose: 400 mg Documented By: TAM Vital Signs Vital signs: Vital Signs - 8 hr 10/16/23 13:15 10/16/23 14:26 Temperature 97.5 F L Pulse Rate 66 56 L Respiratory Rate 20 18 Blood Pressure 190/77 H 184/79 H Pulse Oximetry 98 99 Oxygen Delivery Method Room Air Room Air <Alistair Bird DO - Last Filed: 10/16/23 18:17> Orders Ordered: ED Orders 10/16/23 13:23 XR lumbar spine 2-3V Stat Discontinued Medications Ibuprofen (Ibuprofen 400 Mg Tablet) 400 mg PO NOW ONE Stop: 10/16/23 13:59 Last Admin: 10/16/23 14:01 Dose: 400 mg Documented By: TAM Vital Signs Vital signs: Vital Signs - 8 hr 10/16/23 13:15 10/16/23 14:26 Temperature 97.5 F L Pulse Rate 66 56 L Respiratory Rate 20 18 Blood Pressure 190/77 H 184/79 H Pulse Oximetry 98 99 Oxygen Delivery Method Room Air Room Air MDM - Back Pain/Injury <Liz Garza PA-C - Last Filed: 10/16/23 18:12> Imaging Data Lumbar Xray: Radiologist's Impression: PROCEDURE: XR LUMBAR SPINE 2-3V INDICATIONS: LBP TECHNIQUE: 3 views of the lumbar spine were acquired. COMPARISON: [facility] [place], , XR LUMBAR SPINE 2 OR 3 VIEWS, 09/11/2022, 14:06. FINDINGS: Bones: 5 [id number] vertebrae are present. Straightening of the normal lumbar lordosis. Compression deformity of the L3 vertebral body with approximately 75% height loss centrally is stable compared to prior. Diffusely decreased osseous mineralization. There is multilevel facet arthropathy, worse at L4-5 and L5-S1. Mild multilevel disc height loss with degenerative endplate changes and spurring is present. No new vertebral body compression fractures. No suspicious bony lesions. Soft tissues: Overlying bowel gas pattern is normal. No suspicious soft tissue calcifications. IMPRESSION: Stable appearance of L3 vertebral body compression deformity. No new vertebral body compression deformities. Multilevel degenerative changes of the lumbar spine. Dictated by: Leonel Corado M.D. on 10/16/2023 at 14:10 Approved by: Leonel Corado M.D. on 10/16/2023 at 14:12 [facility] Narrative Medical decision making narrative: Exam and x-ray support no new vertebral fracture or subluxation. The L3 vertebral body compression appears stable. Without radiation or other neurological deficits feel comfortable with treating her for a lumbar strain. The patient was discussed with who agrees with the assessment and plan. Discharge Plan Departure Patient Disposition: Home Clinical Impression: Lumbar back pain Instructions: DI for Back Spasm Activity Restrictions/Additional Instructions: Your back pain is likely muscular in nature with episodes of muscle spasm. Your xray shows the old compression fracture but no new concerning signs. When you have a spasm it should pass by holding still, then slowly moving again. I recommend that you take ibuprofen 400mg 3-4 times daily with food (to protect your stomach) and do this consistently for best results. It's good to go for walks often. Sitting for long periods will delay improvement. Follow up with your primary MD for further advice and/or physical therapy referral. Prescriptions: No Action ondansetron 4 mg tablet,disintegrating 4 mg PO Q8H PRN (Reason: nausea and vomiting) Qty: 7 0RF Disabled Parking Permit See Rx Instructions .ROUTE .COMPLEX Qty: 1 0RF Rx Instructions: My patient cannot walk 200 feet without stopping to rest or must use assistive device. Walking is severely limited due to arthritic, neurological or orthopedic condition. Uses portable oxygen or walking restricted by lung disease. propranolol 120 mg capsule,extended release 24hr 120 mg PO DAILY Qty: 90 3RF Hold Instructions: Home Medication placed on hold at Doctor's office hydrocodone-acetaminophen 5-325 mg tablet 1 - 2 tab PO Q6H PRN (Reason: pain) Qty: 30 0RF mirtazapine 7.5 mg tablet 7.5 mg PO BEDTIME Qty: 30 2RF ASPIRIN (#ASPIR 81) 81 mg PO Q DAY Qty: 0 metoprolol succinate 100 mg tablet extended release 24 hr See Rx Instructions .ROUTE .COMPLEX Qty: 90 1RF Dose Instruction: take 1 tablet by mouth once daily Rx Instructions: take 1 tablet by mouth once daily furosemide 20 mg tablet 20 mg PO DAILY Qty: 90 1RF lisinopril 40 mg tablet See Rx Instructions .ROUTE .COMPLEX Qty: 90 0RF Dose Instruction: take 1 tablet by mouth once daily Rx Instructions: take 1 tablet by mouth once daily trazodone 50 mg tablet See Rx Instructions .ROUTE .COMPLEX Qty: 30 0RF Dose Instruction: take 1 tablet by mouth at bedtime if needed for sleep / insomnia Rx Instructions: take 1 tablet by mouth at bedtime if needed for sleep / insomnia Prilosec OTC 20 mg tablet,delayed release (DR/EC) 20 mg PO DAILY Rx Instructions: takes as needed melatonin 5 mg capsule 20 mg PO BEDTIME Referrals: Keysha Barger MD [Primary Care Provider] - Stand Alone Forms: Patient Portal/API ED Sign-out <Alistair Bird DO - Last Filed: 10/16/23 18:17> Cosign ED Attending Cosignature Attestation: I independently evaluated the patient. Agree with the above history and physical exam.
== END 2023-10-16 14:43 | disposition home or self-care (01) ==
PROVIDERS: Emergency Provider Physician Assistant; Family Provider Family Medicine; PCP Family Medicine
DX: M54.50 Low back pain, unspecified (principal)
CPT/HCPCS: 72100; 99283

== ENCOUNTER → 2023-11-12 10:35 | Outpatient (CLI) | payer MEDICARE, SELFPAY ==
[2022-10-29 15:37] VITALS: BMI 31.8
[2023-11-12 11:27] LABS: Hemoglobin A1C% w Est Avg Glu 5.6 % (4.0-6.0)
[2023-11-12 11:44] LABS: Alanine Aminotransferase 18 IU/L (<35); Albumin 4.2 g/dL (3.5-5.0); Albumin Globulin Ratio 1.4 (1.0-2.8); Alkaline Phosphatase 62 U/L (38-126); Aspartate Aminotransferase 24 IU/L (14-36); BUN Creatinine Ratio 18.1 (6-22); Bilirubin Total 0.6 mg/dL (0.2-1.3); Blood Urea Nitrogen 13 mg/dL (7-17); Calcium 9.5 mg/dL (8.4-10.2); Carbon Dioxide 25 mmol/L (22-32); Chloride 104 mmol/L (98-107); Estimated Glomerular Filt Rate > 60 mL/min (>60); Glucose 99 mg/dL (80-110); HEMOLYSIS < 15 (0-50); Potassium 4.2 mmol/L (3.4-5.1); Sodium 137 mmol/L (137-145); Total Protein 7.2 g/dL (6.3-8.2)
[2023-11-12 14:03] LABS: Creatinine Urine Random 164.5 mg/dL
[2023-11-12 14:39] LABS: Microalbumi Creatinin Ratio Ur 145.8 ug/mg CR (<30)
== END ==
PROVIDERS: Family Provider Family Medicine; PCP Family Medicine; Referring Provider Family Medicine; Visit Provider Family Medicine
DX: I10 Essential (primary) hypertension (principal)
CPT/HCPCS: 36415; 80053; 82043; 82570; 83036

== ENCOUNTER → 2024-06-29 11:50 | Outpatient (CLI) | payer MEDICARE, SELFPAY ==
[2022-10-29 15:37] VITALS: BMI 31.8
--- NOTE | 2024-06-29 11:51 | DI.RAD.S_ITS ---
PROCEDURE: XR DEXA AXIAL SKELETON INDICATIONS: screening COMPARISON: 02/04/2013. FINDINGS: Lumbar Spine (L3 excluded due to increased density): Bone mineral density 0.868 g/cm2, T score -1.5, previously -1.1. Left Hip: Bone mineral density 0.706 g/cm2, T score -1.9, previously -1.2. Left Femoral Neck: Bone mineral density 0.570 g/cm2, T score -2.5, previously -1.9. Right Hip: Bone mineral density 0.698 g/cm2, T score -2, previously -1. Right Femoral Neck: Bone mineral density 0.572 g/cm2, T score -2.5, previously -1.5. Fracture Risk Calculation (when applicable): Not reported due to osteoporosis diagnosis. (T score greater or equal to -1.0 to: NORMAL) (T score from -1.1 to -2.4: OSTEOPENIA) (T score less than or equal to -2.5: OSTEOPOROSIS) IMPRESSION: Osteoporosis. Decreased bone mineralization compared with prior. Follow-up guidelines as follows: Osteoporosis: Consider a repeat DEXA and Vertebral Fracture Assessment (VFA) exam in 2 years or sooner if medically necessary, to reassess this patient's status. Osteopenia: Consider a repeat DEXA in 2-3 years to reassess this patient's status, or if there is a new clinical indication. Normal: Consider a repeat DEXA in 5 years or sooner, or if there is a new clinical indication. All treatment decisions require clinical judgment and consideration of individual patient factors, including patient preferences, comorbidities, previous drug use, risk factors not captured in the FRAX model (e.g., frailty, falls, vitamin D deficiency, increased bone turnover, interval significant decline in bone density ) and possible under- or over-estimation of fracture risk by FRAX. In addition, the NOF Guide recommends that FDA-approved medical therapies be considered in postmenopausal women and men age >= 50 years with a: * Hip or vertebral (clinical or morphometric) fracture * T-score of <=-2.5 at the spine or hip * Ten-year fracture probability by FRAX of >= 3% for hip fracture or >=20% for major osteoporotic fracture. People with diagnosed cases of osteoporosis or at high risk for fracture should have regular bone mineral density tests. For patients eligible for Medicare, routine testing is allowed once every 2 years. The testing frequency can be increased to one year for patients who have rapidly progressing disease, those who are receiving or discontinuing medical therapy to restore bone mass, or have additional risk factors. Dictated by: Franklyn Lawrence M.D. on 06/29/2024 at 15:06 Approved by: Franklyn Lawrence M.D. on 06/29/2024 at 15:08
== END ==
PROVIDERS: Family Provider Family Medicine; PCP Family Medicine; Referring Provider Family Medicine; Visit Provider Family Medicine
DX: Z78.0 Asymptomatic menopausal state (principal); R19.7 Diarrhea, unspecified; M81.0 Age-related osteoporosis without current pathological fracture; Z13.820 Encounter for screening for osteoporosis
CPT/HCPCS: 77080

== ENCOUNTER → 2024-09-21 10:28 | Outpatient (CLI) | payer MEDICARE, SELFPAY ==
[2022-10-29 15:37] VITALS: BMI 31.8
[2024-09-21 14:31] LABS: Clostridium Difficile Tox PCR Negative for C. diff (Negative)
== END ==
LOC: LAB 10:29
PROVIDERS: Family Provider Family Medicine; PCP Family Medicine; Referring Provider Family Medicine; Visit Provider Family Medicine
DX: R19.7 Diarrhea, unspecified (principal)
CPT/HCPCS: 87177; 87493

== ENCOUNTER → 2025-04-16 09:49 | Outpatient (CLI) | payer MEDICARE, SELFPAY ==
[2022-10-29 15:37] VITALS: BMI 31.8
[2025-04-16 10:35] LABS: Alanine Aminotransferase 19 IU/L (<35); Albumin Globulin Ratio 1.7 (1.0-2.8); Alkaline Phosphatase 59 U/L (38-126); Aspartate Aminotransferase 24 IU/L (14-36); BUN Creatinine Ratio 13.1 (6-22); Bilirubin Total 0.6 mg/dL (0.2-1.3); Blood Urea Nitrogen 11 mg/dL (7-17); Calcium 9.6 mg/dL (8.4-10.2); Carbon Dioxide 26 mmol/L (22-32); Chloride 103 mmol/L (98-107); Cholesterol 185 mg/dL (140-199); Estimated Glomerular Filt Rate > 60 mL/min (>60); Globulin 2.3 g/dL (1.7-4.1); Glucose 102 mg/dL (70-99); HDL Cholesterol 66 mg/dL (40-60); HEMOLYSIS < 15 (0-50); LDL Cholesterol Calculated 99 mg/dL (<100); Potassium 4.5 mmol/L (3.4-5.1); Sodium 137 mmol/L (137-145); Total Protein 6.3 g/dL (6.3-8.2); Triglycerides 102 mg/dL (35-150)
== END ==
PROVIDERS: Family Provider Family Medicine; PCP Family Medicine; Referring Provider Family Medicine; Visit Provider Family Medicine
DX: I10 Essential (primary) hypertension (principal)
CPT/HCPCS: 36415; 80053; 80061